=== PATIENT | female | born 1945 | race Caucasian/White ===

== ENCOUNTER → 2019-09-08 07:24 | Outpatient (CLI) | payer MEDICARE, OTHER, SELFPAY ==
[2019-09-08 08:21] LABS: Add Manual Diff / Slide Review NO; Basophils Absolute Auto 100 /uL (0-100); Basophils Percent Auto 0.9 % (0-2); Eosinophils Absolute Auto 300 /uL (0-450); Eosinophils Percent Auto 3.6 % (2-4); Hematocrit 43.4 % (36-46); Hemoglobin 14.5 g/dL (12.0-16.0); Lymphocytes Absolute Auto 2000 /uL (1100-4500); Lymphocytes Percent Auto 21.8 % (25-40); Mean Corpuscular HGB Conc 33.3 % (30-36); Mean Corpuscular Hemoglobin 29.7 PG (26-34); Mean Corpuscular Volume 89.2 fL (80-100); Monocytes Absolute Auto 600 /uL (0-900); Monocytes Percent Auto 6.4 % (3-14); Neutrophils Absolute Auto 6100 /uL (1500-7000); Neutrophils Percent Auto 67.3 % (50-75); Platelet Count 292 X10^3/uL (150-400); Red Blood Cell Count 4.87 X10^6/uL (4.0-5.2); Red Cell Distribution Width 13.3 % (11.6-14.8)
[2019-09-08 08:33] LABS: Alanine Aminotransferase 43 IU/L (<35); Albumin 4.3 g/dL (3.5-5.0); Albumin Globulin Ratio 1.5 (1.0-2.8); Alkaline Phosphatase 64 U/L (38-126); Aspartate Aminotransferase 34 IU/L (14-36); BUN Creatinine Ratio 21.4 (6-22); Bilirubin Total 0.5 mg/dL (0.2-1.3); Blood Urea Nitrogen 15 mg/dL (7-17); Calcium 9.2 mg/dL (8.4-10.2); Carbon Dioxide 32 mmol/L (22-32); Chloride 103 mmol/L (98-107); Cholesterol 179 mg/dL (140-199); Estimated Glomerular Filt Rate > 60.0 mL/min (>60); Globulin 2.9 g/dL (1.7-4.1); Glucose 123 mg/dL (80-110); HDL Cholesterol 41 mg/dL (40-60); HEMOLYSIS < 15 (0-50); LDL Cholesterol Calculated 104 mg/dL (<100); Potassium 4.7 mmol/L (3.4-5.1); Sodium 141 mmol/L (137-145); Total Protein 7.2 g/dL (6.3-8.2); Triglycerides 169 mg/dL (35-150)
[2019-09-08 09:31] LABS: Thyroid Stimulating Hormone 3.74 uIU/mL (0.47-4.68)
== END ==
PROVIDERS: Visit Provider Hospitalist
DX: E11.9 Type 2 diabetes mellitus without complications (principal)
CPT/HCPCS: 36415; 80053; 80061; 83036; 84443; 85025

== ENCOUNTER → 2020-01-13 14:38 | Outpatient (CLI) | payer MEDICARE, OTHER, SELFPAY ==
[2020-01-16 12:53] LABS: Fecal Immunochemical Test Negative (Negative)
== END ==
PROVIDERS: PCP Family Medicine; Referring Provider Family Medicine; Visit Provider Family Medicine
DX: Z12.11 Encounter for screening for malignant neoplasm of colon (principal)
CPT/HCPCS: 82274

== ENCOUNTER → 2020-09-26 10:35 | Outpatient (CLI) | payer MEDICARE, OTHER, SELFPAY ==
[2020-09-26 11:16] LABS: Hemoglobin A1C% w Est Avg Glu 6.6 % (4.0-6.0)
[2020-09-26 11:35] LABS: Alanine Aminotransferase 26 IU/L (<35); Albumin 4.1 g/dL (3.5-5.0); Albumin Globulin Ratio 1.3 (1.0-2.8); Alkaline Phosphatase 76 U/L (38-126); Aspartate Aminotransferase 26 IU/L (14-36); BUN Creatinine Ratio 22.7 (6-22); Bilirubin Total 0.3 mg/dL (0.2-1.3); Blood Urea Nitrogen 15 mg/dL (7-17); Calcium 9.6 mg/dL (8.4-10.2); Carbon Dioxide 32 mmol/L (22-32); Chloride 103 mmol/L (98-107); Cholesterol 225 mg/dL (140-199); Estimated Glomerular Filt Rate > 60.0 mL/min (>60); Globulin 3.2 g/dL (1.7-4.1); Glucose 126 mg/dL (80-110); HDL Cholesterol 42 mg/dL (40-60); HEMOLYSIS < 15 (0-50); LDL Cholesterol Calculated 133 mg/dL (<100); Potassium 4.5 mmol/L (3.4-5.1); Sodium 137 mmol/L (137-145); Total Protein 7.3 g/dL (6.3-8.2); Triglycerides 249 mg/dL (35-150)
[2020-09-26 11:55] LABS: Microalbumin Urine Random < 0.6 mg/dL (0-1.6)
[2020-09-26 11:56] LABS: Creatinine Urine Random 98.6 mg/dL
[2020-09-26 12:03] LABS: TSH w/ Reflex to FT4 4.08 uIU/mL (0.47-4.68)
== END ==
PROVIDERS: PCP Family Medicine; Referring Provider Family Medicine; Visit Provider Family Medicine
DX: E11.9 Type 2 diabetes mellitus without complications (principal); I10 Essential (primary) hypertension; E78.5 Hyperlipidemia, unspecified; I48.91 Unspecified atrial fibrillation
CPT/HCPCS: 36415; 80053; 80061; 82043; 82570; 83036; 84443

== ENCOUNTER → 2020-10-05 12:16 | Outpatient (CLI) | payer MEDICARE, OTHER, SELFPAY ==
--- NOTE | 2020-10-05 12:20 | DI.RAD.S_ITS ---
PROCEDURE: XR HIP W PEL IF DONE RT 2V INDICATIONS: Evaluate for back pain TECHNIQUE: AP pelvis with lateral view(s) of the right hip(s). COMPARISON: None. FINDINGS: Bones: No fractures or dislocations. Pelvic ring appears intact. No suspicious bony lesions. Lumbar spondylosis and facet disease. Mild right hip joint degeneration. Moderate left hip joint degeneration Soft tissues: The visualized bowel gas pattern is normal. No suspicious soft tissue calcifications. IMPRESSION: Mild right hip joint degeneration Dictated by: Ramakrishna Mayer M.D. on 10/05/2020 at 13:19 Approved by: Ramakrishna Mayer M.D. on 10/05/2020 at 13:20
--- NOTE | 2020-10-05 12:20 | DI.RAD.S_ITS ---
PROCEDURE: XR LUMBAR SPINE 2-3V INDICATIONS: Evaluate for back pain TECHNIQUE: 3 views of the lumbar spine were acquired. COMPARISON: None. FINDINGS: Bones: 6 non rib-bearing lumbar vertebra are noted. No fracture. Grade 1 anterolisthesis of L5 on L6. Multilevel degenerative endplate sclerosis and spurring. Diffuse facet arthropathy. Mild narrowing of the L4-L5 and L5-S1 disc spaces. Dextrocurvature of the thoracolumbar spine. Soft tissues: Overlying bowel gas pattern is normal. No suspicious soft tissue calcifications. IMPRESSION: Transitional lumbosacral vertebra, and 6 non rib-bearing lumbar vertebra. Please see montage image for further clarification of the spinal segmental level nomenclature used in this report Grade 1 anterolisthesis of L5 on L6 Lower lumbar spondylosis and facet arthropathy. Dextrocurvature Dictated by: Ramakrishna Mayer M.D. on 10/05/2020 at 13:21 Approved by: Ramakrishna Mayer M.D. on 10/05/2020 at 13:24
== END ==
PROVIDERS: PCP Family Medicine; Referring Provider Family Medicine; Visit Provider Family Medicine
DX: M25.551 Pain in right hip (principal); M54.5 Low back pain; M16.11 Unilateral primary osteoarthritis, right hip; M47.816 Spondylosis without myelopathy or radiculopathy, lumbar region; M43.16 Spondylolisthesis, lumbar region
CPT/HCPCS: 72100; 73502

== ENCOUNTER → 2020-10-25 15:26 | Outpatient (CLI) | payer MEDICARE, OTHER, SELFPAY ==
--- NOTE | 2020-10-25 15:29 | DI.MRI.S_ITS ---
PROCEDURE: MR LUMBAR SPINE WO CON INDICATIONS: Low back pain TECHNIQUE: Noncontrast sagittal T1 spin echo and T2 fast echo, sagittal STIR, axial T1 and T2 fast spin echo through the lumbar spine. In cases with scoliosis, additional coronal T2 fast spin echo may be performed. COMPARISON: [facility], CR, XR LUMBAR SPINE 2-3V, 10/05/2020, 12:23. FINDINGS: Image quality: Excellent. Alignment and Curvature: 6 non rib-bearing lumbar type vertebral body is again seen. The most inferior lumbar type vertebral body is labeled as S1. There is grade 1 anterolisthesis of L5 on S1 and measures 6 millimeters in distance. No gross pars defect is identified. Bone Marrow: Marrow is of normal overall signal. No acute vertebral body compression fractures. Spinal Cord: Conus medullaris terminates at the L2 level. Visualized cord demonstrates normal signal and size. Paraspinous Soft Tissues: No paravertebral masses. L1-L2: Normal appearance. L2-L3: Normal appearance. L3-L4: Disc desiccation signal is seen. Mild broad-based disc bulge and bilateral facet arthrosis is noted. No significant canal stenosis or neural foraminal narrowing. L4-L5: Disc desiccation signals and decreased disc height is noted. Broad-based disc bulge and bilateral facet arthrosis is seen with hypertrophy of ligamentum flavum. Mild central canal stenosis and mild bilateral neural foraminal narrowing is seen. L5-S1: Decreased intervertebral disc space and disc desiccation signals are noted. Diffuse disc bulge and bilateral facet arthrosis with hypertrophy of ligamentum flavum is seen with moderate central canal stenosis and [id number] bilateral neural foraminal narrowing. IMPRESSION: 1. Transitional anatomy with 6 lumbar type non rib-bearing vertebral bodies. 2. Minimal anterolisthesis of L5 on S1. No gross pars defect is seen. 3. No marrow edema. No compression fracture. 4. Degenerative disc bulge and bilateral facet arthrosis at L4-5 and L5-S1 levels causing [id number] central canal stenosis and bilateral neural foraminal narrowing more prominent at L5-S1 level as above. Dictated by: Joon Nazario M.D. on 10/25/2020 at 16:44 Approved by: Joon Nazario M.D. on 10/25/2020 at 16:57
== END ==
PROVIDERS: PCP Family Medicine; Referring Provider Family Medicine; Visit Provider Family Medicine
DX: M54.5 Low back pain (principal); M47.816 Spondylosis without myelopathy or radiculopathy, lumbar region; M47.817 Spondylosis without myelopathy or radiculopathy, lumbosacral region; M51.36 Other intervertebral disc degeneration, lumbar region; M51.37 Other intervertebral disc degeneration, lumbosacral region; M48.061 Spinal stenosis, lumbar region without neurogenic claudication; M48.07 Spinal stenosis, lumbosacral region
CPT/HCPCS: 72148

== ENCOUNTER → 2020-11-01 14:55 | Outpatient (CLI) | payer MEDICARE, OTHER, SELFPAY ==
[2020-11-01 23:12] LABS: Campylobacter Not Detected (Not Detect); Clostridium difficile toxin AB Not Detected (Not Detect); Cryptosporidium Not Detected (Not Detect); Cyclospora cayetanensis Not Detected (Not Detect); Entamoeba histolytica Not Detected (Not Detect); Enteroaggregative E.coli Not Detected (Not Detect); Enteropathogenic E.coli Not Detected (Not Detect); Enterotoxigenic E.coli It/st Not Detected (Not Detect); Plesiomonsa shigelloides Not Detected (Not Detect); Salmonella Not Detected (Not Detect); Shiga-like toxin-prod E.coli Not Detected (Not Detect); Shigella/Enteroinvasive E.coli Not Detected (Not Detect); Vibrio Not Detected (Not Detect); Vibrio cholerae Not Detected (Not Detect); Yersinia enterocolitica Not Detected (Not Detect)
[2020-11-01 23:13] LABS: Adenovirus F 40/41 Not Detected (Not Detect); Astrovirus Not Detected (Not Detect); Giardia lamblia Not Detected (Not Detect); Norovirus GI/GII Not Detected (Not Detect); Rotavirus A Not Detected (Not Detect); Sapovirus Not Detected (Not Detect)
== END ==
PROVIDERS: PCP Family Medicine; Visit Provider Specialist
DX: R19.7 Diarrhea, unspecified (principal)
CPT/HCPCS: 87177; 87507; 99212; G0463

== ENCOUNTER → 2020-11-07 10:09 | Outpatient (CLI) | payer MEDICARE, OTHER, SELFPAY ==
[2020-11-07 10:51] LABS: COVID19 -Nasal RAPID Negative (Negative)
== END ==
PROVIDERS: PCP Family Medicine; Visit Provider Specialist
DX: Z20.822 Contact with and (suspected) exposure to COVID-19 (principal)
CPT/HCPCS: 87635; C9803

== ENCOUNTER 2020-11-08 06:05 | Day surgery (SDC) | payer MEDICARE, OTHER, SELFPAY ==
[2020-11-08] VITALS (9 sets, daily range): BP systolic 108–126; BP diastolic 57–72; PULSE 52–70; RESP 10–17; TEMP 36.3–36.6; O2SAT 91–97; BMI 30.7
--- NOTE | 2020-11-08 | PATH_ITS ---
[facility] Accession Number: [id number] . 01 Material submitted: . PART A: colon - EDGE OF APPENDIX OPENING PART B: colon - RANDOM COLON BIOPSIES PART C: colon - POLYP AT 15 CM X2 . 02 Diagnosis: A. Appendiceal Orifice, Biopsy: Colonic mucosa with benign lymphoid hyperplasia. Negative for active or microscopic colitis. Negative for granulomata, dysplasia or malignancy. . B. Random Colon, Biopsies: Colonic mucosa with no diagnostic abnormality. Negative for active, chronic, and microscopic colitis. Negative for dysplasia and malignancy. . C. Colon Polyps at 15 cm, Biopsies: Benign peripheral nerve sheath lesion x1. Hyperplastic polyp x1. Negative for dysplasia or malignancy. MRV 11/14/2020 1642 Local . 02 Electronically signed: . Gael Michael MD, PhD, Pathologist NPI- [id number] . 01 Gross description: . Part A: EDGE OF APPENDIX OPENING: Received in formalin are 3 fragment(s) of bailey, soft tissue measuring 0.2 x 0.2 x 0.2 cm to 0.3 x 0.3 x 0.2 cm submitted entirely in 1 cassette(s) Part B: RANDOM COLON BIOPSIES: Received in formalin are multiple fragment(s) of bailey, soft tissue measuring 0.1 x 0.1 x 0.1 cm to 0.3 x 0.3 x 0.3 cm submitted entirely in 1 cassette(s) Part C: POLYP AT 15 CM X2: Received in formalin are 4 fragment(s) of bailey, soft tissue measuring 0.2 x 0.2 x 0.2 cm to 0.5 x 0.5 x 0.3 cm submitted entirely in 1 cassette(s) /SAM 11/09/20202025 Local . 02 Microscopic: . C. Sections are of colonic mucosa. One biopsy fragment shows expansion of the lamina propria by a bland-appearing spindle cell neoplasm. There is no significant nuclear atypia or mitotic activity. Necrosis is absent. To further classify the spindle cells, a limited panel of immunohistochemical stains is performed (each with an appropriately positive control). The cells of interest are strongly and diffusely positive for S100 immunoreactivity, consistent with a benign peripheral nerve sheath lesion. The cells of interest are negative for DOG-1 and desmin immunoreactivity, essentially excluding a gastrointestinal stromal tumor or leiomyoma, respectively. . * This test was developed and its performance characteristics determined by [facility]. It has not been cleared or approved by the U.S. Food and Drug Administration. The FDA has determined that such clearance or approval is not necessary. This test is used for clinical purposes. It should not be regarded as investigational or for research. . 02 Pathologist provided ICD-10: R19.7, D12.6, K63.5 . 02 CPT . 304332, 295873, 932374 Performed at: 01 [facility] [address] [id number] MD Edison Vargas MD Phone: [phone] Performed at: 02 [facility] [address] [place] [id number] MD Miriam Matos MD Phone: [phone]
[2020-11-08] MEDS: LACTATED RINGERS 1,000 ML 200 ML IV (07:30)
--- NOTE | 2020-11-08 07:38 | PM.PREOP ---
Pre-operative Note COVID-19 COVID-19 status: Negative Result date/Date tested (Pos, Neg/Pending): 11/07/20 Interval Note History & Physical reviewed/Exam performed by Physician: Yes Changes to H&P: Yes H&P completed within 30 days and has changed as indicated here:: Stool studies thus far negative for pathogens ASA Class (for procedural sedation): III
--- NOTE | 2020-11-08 08:15 | PM.OP.ENDO ---
Operative Date/Time/Diagnoses Date of procedure: 11/08/20 Time of procedure: 08:16 Pre-op diagnosis: Chronic diarrhea. Post sigmoid resection. Post-op diagnosis: same Procedure & Clinicians Study performed: Colonoscopy with cold biopsy Same procedure as scheduled: Yes Indications: Evaluate for colonic lesions. Chronic diarrhea. Screening. Surgeon: Eduardo Sanon Procedure Notes SCOAP/Timeout: Performed Procedure in detail: Patient is placed left lateral decubitus position underwent IV sedation duct by the surgeon consisting fentanyl Marck. Digital exam was unremarkable though visibly patient had large external hemorrhoids. Scope was inserted miss of the rectum into what ultimately was found to be the descending transverse and ascending colon reaching the cecum identified by the ileocecal valve appendiceal opening. Appendiceal opening seemed a little irregular and I biopsied it. I briefly cannulated the terminal ileum which was normal in appearance. Random biopsies were taken as I gradually pulled the scope out. I saw no other mucosal lesions till I reach the area of the anastomosis which was at 15 cm. There were 2 polyp like lesions which I biopsied and removed. There was some visible suture material at the anastomosis. The scope was brought into the rectum and retroflexed. There were no significant internal hemorrhoids or lesions. The scope was removed the patient tolerated the procedure well. The prep was very good. Scope withdrawal time: 8 minutes (12 total) Sedation minutes: 24 Findings: diverticulosis (Occasional) and polyp Specimen(s): other (Random colon biopsies. Edge of the appendiceal opening. Polyps near the anastomosis at 15 cm. ) Post-procedure Recommendations: Colonscopy in 5 years Plan for aftercare: Follow-up bilateral phone Follow up: as needed Disposition: PACU
[2020-11-08] MEDS: fentaNYL 250 MCG/5 ML INJ IV (08:16)
[2020-11-08] MEDS: MIDAZOLAM 5 MG/5 ML VIAL IV (08:16)
--- NOTE | 2020-11-08 08:21 | SUR.PHASEI ---
pt felt weak arriving from endo room, thought BS was dropping, rechecked BS was 118, same as preop. will continue to monitor.
== END 2020-11-08 10:03 | disposition home or self-care (01) ==
PROVIDERS: PCP Family Medicine; Referring Provider Family Medicine; Visit Provider Specialist
PROC: 0DJD8ZZ Inspection of Lower Intestinal Tract, Via Natural or Artificial Opening Endoscopic (ICD-10-PCS; CPT 45378; principal; 2020-11-08 07:45)
DX: K52.9 Noninfective gastroenteritis and colitis, unspecified (principal); K57.30 Diverticulosis of large intestine without perforation or abscess without bleeding; K63.5 Polyp of colon; D36.7 Benign neoplasm of other specified sites
CPT/HCPCS: 45380; 99152; J2250; J3010

== ENCOUNTER → 2020-11-22 09:41 | Outpatient (CLI) | payer MEDICARE, OTHER, SELFPAY ==
[2020-11-22 09:50] LABS: RBC Urine None Seen (0-5/HPF)
[2020-11-22 10:43] LABS: Add Manual Diff / Slide Review NO; Basophils Absolute Auto 100 /uL (0-100); Basophils Percent Auto 0.7 % (0-2); Eosinophils Absolute Auto 200 /uL (0-450); Eosinophils Percent Auto 1.8 % (2-4); Hematocrit 42.5 % (36-46); Hemoglobin 13.8 g/dL (12.0-16.0); Lymphocytes Absolute Auto 1900 /uL (1100-4500); Lymphocytes Percent Auto 20.4 % (25-40); Mean Corpuscular HGB Conc 32.5 % (30-36); Mean Corpuscular Hemoglobin 29.4 PG (26-34); Mean Corpuscular Volume 90.6 fL (80-100); Monocytes Absolute Auto 500 /uL (0-900); Monocytes Percent Auto 5.5 % (3-14); Neutrophils Absolute Auto 6700 /uL (1500-7000); Neutrophils Percent Auto 71.6 % (50-75); Platelet Count 293 X10^3/uL (150-400); Red Blood Cell Count 4.69 X10^6/uL (4.0-5.2); Red Cell Distribution Width 13.5 % (11.6-14.8); White Blood Cell Count 9.4 X10^3/uL (4.5-11.0)
[2020-11-22 12:13] LABS: Appearance Urine UA CLEAR; Bilirubin Urine UA NEGATIVE (NEGATIVE); Color Urine UA YELLOW; Glucose Urine UA NEGATIVE (Negative); Ketones Urine UA NEGATIVE (NEGATIVE); Leukocyte Esterase Urine UA NEGATIVE (NEGATIVE); Nitrite Urine UA NEGATIVE (Negative); Occult Blood Urine UA NEGATIVE (Negative); Protein Urine UA NEGATIVE (Negative); Urobilinogen Urine UA 0.2 E.U./dL (0.2)
[2020-11-22 12:18] LABS: pH Urine UA 7.5 (4.5-8.0)
[2020-11-22 12:19] LABS: BUN Creatinine Ratio 27.6 (6-22); Blood Urea Nitrogen 16 mg/dL (7-17); Calcium 9.1 mg/dL (8.4-10.2); Carbon Dioxide 32 mmol/L (22-32); Chloride 103 mmol/L (98-107); Estimated Glomerular Filt Rate > 60.0 mL/min (>60); Glucose 147 mg/dL (80-110); HEMOLYSIS < 15 (0-50); Sodium 139 mmol/L (137-145)
[2020-11-22 12:34] LABS: Bacteria Urine Moderate (10-30); Culture Indicated Urine Cult Not Indicated; Squamous Epithelial Cell Urine 1-5 /HPF (0-5/HPF); WBC Urine 0-1/HPF (0-5/HPF)
== END ==
PROVIDERS: PCP Family Medicine; Referring Provider Orthopaedic Surgery Orthopaedic Surgery of the Spine; Visit Provider Orthopaedic Surgery Orthopaedic Surgery of the Spine
DX: Z01.818 Encounter for other preprocedural examination (principal); Z01.812 Encounter for preprocedural laboratory examination; N39.0 Urinary tract infection, site not specified
CPT/HCPCS: 36415; 80048; 81001; 85025; 93005

== ENCOUNTER → 2020-12-18 16:57 | Outpatient (CLI) | payer MEDICARE, OTHER, SELFPAY ==
[2020-12-18 17:48] LABS: Add Manual Diff / Slide Review NO; Basophils Absolute Auto 100 /uL (0-100); Basophils Percent Auto 0.5 % (0-2); Eosinophils Absolute Auto 200 /uL (0-450); Eosinophils Percent Auto 2.2 % (2-4); Hematocrit 41.9 % (36-46); Lymphocytes Absolute Auto 2000 /uL (1100-4500); Lymphocytes Percent Auto 18.6 % (25-40); Mean Corpuscular HGB Conc 33.3 % (30-36); Mean Corpuscular Hemoglobin 29.9 PG (26-34); Mean Corpuscular Volume 89.8 fL (80-100); Monocytes Absolute Auto 600 /uL (0-900); Monocytes Percent Auto 5.9 % (3-14); Neutrophils Absolute Auto 7900 /uL (1500-7000); Neutrophils Percent Auto 72.8 % (50-75); Platelet Count 306 X10^3/uL (150-400); Red Blood Cell Count 4.67 X10^6/uL (4.0-5.2); Red Cell Distribution Width 12.9 % (11.6-14.8); White Blood Cell Count 10.9 X10^3/uL (4.5-11.0)
[2020-12-18 18:13] LABS: BUN Creatinine Ratio 25.7 (6-22); Blood Urea Nitrogen 19 mg/dL (7-17); Calcium 9.2 mg/dL (8.4-10.2); Carbon Dioxide 32 mmol/L (22-32); Chloride 102 mmol/L (98-107); Estimated Glomerular Filt Rate > 60.0 mL/min (>60); Glucose 145 mg/dL (80-110); HEMOLYSIS < 15 (0-50); Potassium 3.9 mmol/L (3.4-5.1); Sodium 138 mmol/L (137-145)
== END ==
PROVIDERS: PCP Family Medicine; Referring Provider Orthopaedic Surgery Orthopaedic Surgery of the Spine; Visit Provider Orthopaedic Surgery Orthopaedic Surgery of the Spine
DX: Z01.812 Encounter for preprocedural laboratory examination (principal)
CPT/HCPCS: 36415; 80048; 85025

== ENCOUNTER → 2020-12-28 08:24 | Outpatient (CLI) | payer MEDICARE, OTHER, SELFPAY ==
[2020-12-28 10:10] LABS: RBC Urine 0-1/HPF (0-5/HPF); Squamous Epithelial Cell Urine 5-10 /HPF (0-5/HPF); WBC Urine 1-5/HPF (0-5/HPF)
[2020-12-28 10:11] LABS: Bacteria Urine Moderate (10-30); Culture Indicated Urine Cult Not Indicated; Mucus Urine 2+ (Negative)
== END ==
PROVIDERS: PCP Family Medicine; Referring Provider Specialist; Visit Provider Specialist
DX: R10.2 Pelvic and perineal pain (principal)
CPT/HCPCS: 81015

== ENCOUNTER → 2020-12-29 11:06 | Outpatient (CLI) | payer MEDICARE, OTHER, SELFPAY ==
[2020-12-29 14:38] LABS: COVID19 -Nasal RAPID Negative (Negative)
== END ==
PROVIDERS: PCP Family Medicine; Visit Provider Nurse Practitioner
DX: Z20.822 Contact with and (suspected) exposure to COVID-19 (principal)
CPT/HCPCS: 87635

== ENCOUNTER 2020-12-31 05:43 | Inpatient (IN) | payer MEDICARE, OTHER, SELFPAY ==
[2020-12-31] VITALS (21 sets, daily range): BP systolic 77–127; BP diastolic 34–69; PULSE 7–90; RESP 11–96; TEMP 35.9–36.8; O2SAT 11–96; BMI 30.1
--- NOTE | 2020-12-31 | DI.RAD.S_ITS ---
PROCEDURE: XR LUMBAR SPINE 2-3V INDICATIONS: L5-S1 TLIF TECHNIQUE: 2 views of the lumbar spine were acquired. COMPARISON: [facility], , XR LUMBAR SPINE 2-3V, 10/05/2020, 12:23. FINDINGS: Previous lumbar spine radiograph shows transitional anatomy with 6 lumbar type vertebral bodies. Intraoperative fluoroscopic images of lower lumbar spine shows transpedicular fusion at L5-S1 level with intervertebral spacer placement. IMPRESSION: Fluoro guidance was provided intraoperatively for lower lumbar spine fusion at L5-S1 level. Dictated by: Joon Nazario M.D. on 12/31/2020 at 11:14 Approved by: Joon Nazario M.D. on 12/31/2020 at 11:16
--- NOTE | 2020-12-31 07:38 | PM.PREOP ---
Pre-operative Note COVID-19 COVID-19 status: Negative Result date/Date tested (Pos, Neg/Pending): 12/29/20 Interval Note History & Physical reviewed/Exam performed by Physician: Yes Changes to H&P: No
[2020-12-31] MEDS: LACTATED RINGERS 1,000 ML 42 ML IV ×2 (07:41→10:21)
[2020-12-31] MEDS: CEFAZOLIN 2 GM/100 ML FROZ.PIGGY IV ×3 (08:00→23:36)
--- NOTE | 2020-12-31 08:27 | SUR.OPER ---
Prone on spine table, head in foam head support, padded chest and pelvic supports, gel pad at knees, lower legs supported by pillows; nipples, genitalia and toes free of pressure, arms secured on foam padded arm boards at <90 degrees abduction. Tape over blanket at thigh secured to table.
[2020-12-31] MEDS: BUPIVACAINE 0.5% W/ EPI (PF) 30 ML VIAL INJ (08:36)
[2020-12-31] MEDS: BUPIVACAINE LIPOSOME 266 MG/20 ML VIAL INJ (08:36)
--- NOTE | 2020-12-31 10:44 | P.OP_ITS ---
Operative Date/Time/Diagnoses Date of procedure: 12/31/20 Time of procedure: 07:45 Pre-op diagnosis: 1. L5-S1 spondylolisthesis 2. L5-S1, S1-S2 spinal stenosis 3. Lumbar spondylosis with radiculopathy Post-op diagnosis: same Procedure & Clinicians Procedure: 1. L5-S1 Postero-lateral and posterior interbody fusion 2. L5-S1 interbody cage placement. 3. L5-S1 decompressive laminectomy with bilateral facetecomies 4. S1-S2 left hemilaminectomy 5. L5-S1 Posterior non-segmental instrumentation 6. Kearsarge of bone marrow from iliac crest 7. Utilization of microsurgical technique and operating microscope Same procedure as scheduled: Yes Indications: Patient has been having chronic back pain and worsening lumbar radiculopathy. Patient failed multiple conservative management with worsening pain weakness and numbness in her lower extremity. Patient has been having difficulty performing activity of daily living. After discussing risks benefits of treatment options, patient elected proceed with surgery. Surgeon: Lynn Osei Maintenance Mechanic Telephone: Yen Martinez Click Yes if Unassisted: No Anesthesia Type: General Operative Notes Closure Type: primary Specimen(s): none sent Prosthetic devices, grafts, tissues, transplants, or devices: Globus revolve screws, Rise cage Applied: catheter Estimated Blood Loss (mL): 50 Blood products transfused: none Procedure in detail: Patient was seen in the preoperative area. Risks and benefits of the surgery was discussed with the patient. Informed consent was obtained from the patient and placed in the chart. Surgical site was marked. Patient was taken to the operative room. General anesthesia was administered. Prophylactic antibiotic was given to the patient less than 30 min before the incision was made. Patient was placed into a prone position on the Tyrone tab le. Patient's back was then prepped and draped in the sterile fashion. Time-out was performed at this time. Patient has transitional anatomy with 6 lumbar vertebrae. In order to keep consistency with the MRI report nomenclature, the spondylolisthesis is located at the L5-S1 level, which is the 2nd most caudal level from the sacrum. The most caudal motion segment is named S1-S2, but it bears lumbar sacral anatomy. Using AP and lateral C-arm imaging the interval between L5-S1 S1-S2 was identified and marked on patient's back. A 2 inch incision 2 in from midline was made on the Left side first. The fascia was incised in line with skin incision. Globus MARS retractors was placed inside the incision and docked onto the L5 lamina. Using microsurgical technique and operating microscope, a L5 laminectomy and L5-S1 facetectomy was performed using a Kerrison rongeur. The disc space at L5-S1 was identified. And a total diskectomy was performed at L5- S1 level. The endplates were decorticated using a rasp and shaver. The total diskectomy and decortication was performed at L5-S1 level in order to to accomplish a L5-S1 fusion. The local bone from the laminectomy and facetectomy was saved for local bone grafting. After the total diskectomy and decortication was completed, Globus Trifecta bone graft material was combined with local bone that was harvested earlier. At this time, a separate skin is incision was made over the iliac crest. A Jamshidi needle was inserted into the iliac crest through a separate skin incision. 5 cc of bone marrow aspiration was obtained through the separate skin incision using a Jamshidi needle from the iliac crest. The bone marrow aspiration was combined with local bone and the via cell bone grafting material. The bone grafting material was placed into the L5-S1 interbody space along with a expandable cage. The cage was expanded to its maximum height using the torque limiting screwdriver. At this time the MARS retractor was redirected over the L5 lamina. Using microsurgical technique and operating microscope, a S1-S2 heminectomy was performed using the Kerrison rongeur. The ligamentum flavum was also resected at the side of the hemila minectomy for further decompression of the epidural space. At this time a mirror image incision was made on the Right side. The fascia was incised in line with the skin incision. Globus MARS retractor was inserted and docked onto the L5-S1 posterolateral gutter. Using the power drill, posterior- lateral decortication was performed at L5-S1 level until bleeding cortical bone was identified. The remaining bone grafting material was placed into the L5-S1 posterior lateral gutter he order to accomplish posterolateral fusion at the L5- S1 level. Using the double C-arm technique, pedicle screws were placed into the L5 and S1 pedicles bilaterally. This was done by placing the Jamshidi needle into the pedicles, then placing the guidewires over the Jamshidi needle, and finally placing the cannulated screws over the guidewires bilaterally. After the pedicle screws were placed, 2 titanium rods was locked into the heads of the pedicle screws using locking caps and torque limiting screwdriver. After all the hardware was placed, and confirmed with AP and lateral C-arm imaging, the wound was then irrigated with sterile normal saline and packed with Ray-Charles gauze for 3 min to accomplish hemostasis. After the gauze was removed the deep fascia was closed with #1 Vicryl suture. The subcutaneous layer was closed with 2-0 Vicryl. The skin was closed with skin melissa. Patient tolerated the procedure well. There were no complications. Complications: none Post-operative Condition: stable Disposition: PACU Plan for aftercare: Admit to inpatient hospital
[2020-12-31] MEDS: fentaNYL 100 MCG/2 ML INJ IV ×3 (11:08→11:40)
[2020-12-31] MEDS: HYDROMORPHONE 2 MG INJ IV ×6 (11:10→11:56)
[2020-12-31] MEDS: OXYCODONE IR 5 MG TABLET PO ×2 (11:24→11:55)
--- NOTE | 2020-12-31 12:14 | SUR.PHASEI ---
Pt with map of 40-55, repositioned BP cuff, pt received 2 bags of IVF. pt reports pain is 8-9/10, sleeps in between, grimace on brow. Pt received 1.5 mg Dilaudid and 150 mg Fentanyl with 10 mg oxy. Spoke with anesthesia, continue to monitor pt in phase 1, no additional fluids and do not give additional pain medication. Supportive care and continue to monitor.
[2020-12-31] MEDS: ACETAMINOPHEN IV 1,000 MG/100 ML VIAL 400 MG IV (12:57)
[2020-12-31] MEDS: SODIUM CHLORIDE 0.9% 1,000 ML 100 ML IV (14:19)
[2020-12-31] MEDS: HYDROMORPHONE 0.5 MG INJ IV ×2 (14:32→23:52)
--- NOTE | 2020-12-31 15:00 | PC.NURSE ---
Patient brought to unit at 1:45 from PACU. On 5L of O2 nasal cannula, sating around 89-92%. RT called to assess and determined she can stay at 5L for now. Pain 8/10 in back, given 05. mg IV dilaudid which provided some relief. Patient is complaining of right eye pain and this racebook writer noted redness, tearing and a possible scratch in the eye. This racebook writer attempted to flush the eye with saline and provided a warm compress which provided momentary relief. Attempted to contact Dr. Osei to come assess this patients eye but he is in surgery at this time, will pass on to next shift to evaluate. SCDs applied BLE. Call light within reach.
--- NOTE | 2020-12-31 15:10 | PT-IP ANOTE ---
Checked on pt at 1500 for postop evaluation. Pt complained of 10/10 pain and was noted to be quite groggy. Will follow up for evaluation on 01/01/21.
[2020-12-31] MEDS: OXYCODONE IR 5 MG TABLET 10 MG PO ×2 (15:41→20:21)
--- NOTE | 2020-12-31 16:32 | SUR.PHASEII ---
notified by floor RN that pt had red painful eye. Spoke with Dr Santillan by phone, he states staff shouldd patch eye. When asked about any drops or numbing drops, he declined and stated to just patch the eye. This was relayed to the acute care RN
[2020-12-31] MEDS: SENNOSIDES 8.6 MG TABLET 17.2 MG PO (20:18)
[2020-12-31] MEDS: METFORMIN HCL 500 MG TABLET PO (20:18)
[2020-12-31] MEDS: TRAZODONE 50 MG TABLET 100 MG PO (20:18)
[2020-12-31] MEDS: DOCUSATE 100 MG CAPSULE PO (20:18)
[2020-12-31] MEDS: ESCITALOPRAM 10 MG TABLET PO (20:53)
[2020-12-31] MEDS: ONDANSETRON 4 MG/2 ML INJ IV (23:36)
[2021-01-01] VITALS (8 sets, daily range): BP systolic 93–139; BP diastolic 52–75; PULSE 64–89; RESP 14–18; TEMP 36.4–37.6; O2SAT 83–97
[2021-01-01] MEDS: SODIUM CHLORIDE 0.9% 1,000 ML 100 ML IV (00:29)
[2021-01-01] MEDS: OXYCODONE IR 5 MG TABLET 10 MG PO ×5 (02:44→23:40)
[2021-01-01] MEDS: hydrOXYzine pamoate 25 MG CAPSULE PO ×2 (03:58→07:53)
[2021-01-01] MEDS: HYDROMORPHONE 0.5 MG INJ IV (04:44)
[2021-01-01] MEDS: PANTOPRAZOLE 20 MG TABLET PO (06:56)
[2021-01-01] MEDS: LEVOTHYROXINE 100 MCG TABLET PO (06:56)
[2021-01-01] MEDS: DOCUSATE 100 MG CAPSULE PO ×2 (07:51→20:58)
[2021-01-01] MEDS: CHOLECALCIFEROL (VITAMIN D3) 1,000 UNIT TABLET 1000 UNIT PO (07:51)
[2021-01-01] MEDS: FERROUS SULFATE 325 MG TABLET PO (07:51)
[2021-01-01] MEDS: FUROSEMIDE 20 MG TABLET PO (07:51)
[2021-01-01] MEDS: METOPROLOL ER 25 MG TABLET PO (07:52)
[2021-01-01] MEDS: ACETAMINOPHEN 325 MG TABLET 650 MG PO ×3 (07:52→23:40)
[2021-01-01] MEDS: METFORMIN HCL 500 MG TABLET PO ×2 (07:52→21:00)
--- NOTE | 2021-01-01 07:55 | P.PN_ITS ---
Subjective Subjective Date Patient Seen: 01/01/21 Time Patient Seen: 07:55 Interval history: Patient's pain is 9/10. Denies fever or chills. She was nauseous this morning and had a couple episodes of vomiting. She is feeling better now. No shortness of breath or chest pain. Was not able to participate with physical therapy yesterday evening secondary to feeling tired and her pain was 10/10. Exam Vital Signs (past 8 hours): - 01/01/21 00:24 01/01/21 04:40 Temperature 97.5 F L 98.0 F Pulse Rate 66 76 Respiratory Rate 16 18 Blood Pressure 114/65 139/75 Pulse Oximetry 97 Oxygen Delivery Method Room Air Oxygen Flow Rate 3 Narrative Exam Narrative: Pleasant 75-year-old female resting comfortably in bed in no apparent distress. Patient is alert and oriented. Both legs are warm and dry. Motor functions intact distal bilateral lower extremities. Sensation grossly intact to light touch bilateral lower extremities. Dressing is Clean, dry, intact. [facility] Medical History Arthritis Cardiac arrhythmia (~2013) Cataract fragments in eye following surgery Cataracts, bilateral (~1994) Chronic back pain Chronic diarrhea Constipation Diabetes Diarrhea Diverticulosis (~2017) Flesh-eating bacteria (~2000) Grief reaction Hyperlipidemia Hypothyroidism Left shoulder pain (~2020) Restless leg syndrome Spinal stenosis Spondylolisthesis, lumbar region Surgical History Anesthesia Broken collarbone (~2011) Diverticular disease (~2017) History of cholecystectomy History of colonoscopy with polypectomy History of hysterectomy Hx of arthroscopy Hx of LASIK S/P cervical spinal fusion S/P colectomy Family History Father History of heart disease Mother Rheumatoid arthritis Brother History of heart disease Brother Cancer Social History marital status: unknown household members: none Smoking Status: Never smoker alcohol intake: never substance use type: does not use Assessment & Plan Post-op Postoperative Procedures: Procedures Operation Date: 12/31/20 07:45 Actual Procedures Side Surgeon p S1-S2 left hemilaminectomy, L5-S1 TLIF w. posterior instrumentation Lynn Osei MD Postop day 1. Patient progressing as expected. Mobilize with physical therapy. Continue work on pain control. Likely discharge home in 1-2 days.
--- NOTE | 2021-01-01 09:35 | PT.IIE ---
Current Diagnoses Spondylolisthesis, lumbosacral region (12/31/20) Spinal stenosis, lumbar region without neurogenic claudication (12/31/20) Surgery Performed Operation Date: 12/31/20 07:45 Actual Procedures p S1-S2 left hemilaminectomy, L5-S1 TLIF w. posterior instrumentation - Lynn Osei MD Surgical History (Last Reviewed 01/01/21 @ 07:56 by Rick Sanches PA-C) Anesthesia Broken collarbone (~2011) Diverticular disease (~2017) History of cholecystectomy History of colonoscopy with polypectomy History of hysterectomy Hx of arthroscopy Hx of LASIK S/P cervical spinal fusion S/P colectomy Medical History (Last Reviewed 01/01/21 @ 07:56 by Rick Sanches PA-C) Arthritis Cardiac arrhythmia (~2013) Cataract fragments in eye following surgery Cataracts, bilateral (~1994) Chronic back pain Chronic diarrhea Constipation Diabetes Diarrhea Diverticulosis (~2017) Flesh-eating bacteria (~2000) Grief reaction Hyperlipidemia Hypothyroidism Left shoulder pain (~2020) Restless leg syndrome Spinal stenosis Spondylolisthesis, lumbar region Physical Therapy Inpatient Evaluation/Re-Eval M1 PT/OT-IP Prior Functional Status Start: 12/31/20 14:49 Freq: NEEDED Status: Active Protocol: Document 01/01/21 09:34 AW (Rec: 01/01/21 12:19 AW [id number]) Medical Review Prior Functional Status Medical History Reviewed Yes Communication WNL. Pt is an effective verbal communicator. Mobility and Gait Pt reports slow but independent mobility at mobility. She enjoys gardening . Activities of Daily Living and IADL's Pt endorses urge incontinence. She has been independent with ADL's. She drives and pays her own bills. Social History Household Members none Living Arrangements House Number of Floors (Floors) One Floor Number of Stairs To Enter/Railing? 2 TIM with narrow B rails through the garage entry. 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 She identifies no significant social support. She states senior services will drive her home and that she has contacted [facility] about post-op services. M2 PT-IP Current Condition Start: 12/31/20 14:49 Freq: NEEDED Status: Active Protocol: Document 01/01/21 09:34 AW (Rec: 01/01/21 12:19 AW [id number]) Physical Therapy Current Condition Current Condition Evaluation Date 01/01/21 Treatment Diagnosis s/p L5-S1 TLIF; difficulty in walking Onset Date 12/31/20 Precautions Lumbar Precautions Log Roll,No Twisting,Limit Bending,Lifting Restriction of 10 lbs,Gait Belt above Incisional Area Weight Bearing Status Weight Bearing Status Weight Bear as Tolerated M3 PT-IP Subjective Start: 12/31/20 14:49 Freq: NEEDED Status: Active Protocol: Document 01/01/21 09:34 AW (Rec: 01/01/21 12:19 AW [id number]) Subjective Physical Therapy Visit Type Type Initial Evaluation Visit Start Time 09:08 Visit Stop Time 09:34 Total Visit Minutes 26 Number of RUG TOUCH UP PAINTER Visits 0 Physical Therapy Visit Comments Patient Comments I think I had too much pain medication. Patient Goals Pt hopes to be able to plant her [employer] in February. Therapy Pain Assessment Pain When Pain Assessed At Rest Pain Present Pain Present Pain Reported Location Back Intensity 4 Scale Used increases with mobility Pain Management Techniques Modification of Treatment,Re- positioning,Timing of Activity with Medications M4 PT-IP Mobility and Gait Start: 12/31/20 14:49 Freq: NEEDED Status: Active Protocol: Document 01/01/21 09:34 AW (Rec: 01/01/21 12:19 AW [id number]) PT-Bed Mobility Assessment Rolling Type of Rolling Log Rolling Level of Assist Moderate Assistance,1 Person Assistance Sit to Supine Sit to Supine Moderate Assistance,1 Person Assistance Scooting Scooting Up and Down in Bed Moderate Assistance PT-Transfer Assessment Sit to and From Stand Sit to and from Stand Moderate Assistance,1 Person Assistance,Use of Upper Extremities Equipment Transfer Assistive Device Gait Belt,Front Wheeled Walker Orthotic/Prosthetic Devices or Brace: No Transfers Transfer Destination Bed Transfer Technique Stand Step Pivot Transfer Ability Level of Assist Moderate Assistance,1 Person Assistance,Use of Upper Extremities Comments Mobility Comments Pt was sitting up in the chair finishing breakfast as PT arrived. Educated pt on back precautions and log roll technique. She wanted to go back to bed. From the chair, she needeed mod assist to stand. She used the FWW to ambulate 20 feet around the room min assist. On return to the right side of the bed, pt sat and required mod assist to transition to sidelying, to roll onto her back, and to reposition. Pt was left with call light and all needs in reach. Bed alarm was on for safety. Gait Assessment Gait Gait Assistance Required: Minimum Assistance,1 Person Assist Distance (Feet) 20 Able to Maintain Weight Bearing Status Yes During Gait Assistive Devices Assistive Device Gait Belt,Front Wheeled Walker Orthotic/Prosthetic Devices or Brace: No Gait Deviations General Gait Pattern Antalgic,Decreased Stride Length,Decreased Feet Clearance,Flexed Trunk,Step-to Gait Factors Limiting Gait Function Factors Limiting Gait Function Decreased Activity Tolerance, Decreased Strength,Limited Range of Motion,Pain,Poor Balance Comments Gait Comments See mobility comments. Stair Climbing Assessment Comments Stair Climbing Comments Not assessed. PT-Balance Assessment Sitting Balance and Reactions Static Sitting Balance Ability Good Dynamic Sitting Balance Ability Good Standing Balance and Reactions Static Standing Balance Ability Good Dynamic Standing Balance Ability Fair Device Used FWW M5 PT-IP Objective Assessments Start: 12/31/20 14:49 Freq: NEEDED Status: Active Protocol: Document 01/01/21 09:34 AW (Rec: 01/01/21 12:19 AW [id number]) Orientation Orientation/Cognition Level of Alertness Lethargic Orientation Name,Day of Week,Place, Situation Language Function Ability No Deficits Noted Safety Awareness Decreased Safety Awareness Comments Pt was lethargic due to pain medication. RN notified. Gross Range of Motion Lower Extremity ROM Assessment Within Functional Limits Strength Lower Extremity Strength Assessment Bilaterally Impaired Hip 4-/5 Knee 4-/5 Ankle 4/5 Sensation Assessment Sensation Gross Sensation WNL Muscle Tone Muscle Tone WNL Yes M6 PT-IP Treatment Start: 12/31/20 14:49 Freq: NEEDED Status: Active Protocol: Document 01/01/21 09:34 AW (Rec: 01/01/21 12:19 AW [id number]) Physical Therapy Treatment Exercises Exercises Ankle Pumps Education Education Provided Precautions,Weight Bearing Status,Post-Op Packet,Safety Other Treatments Other Treatment Performed Educated pt on role of PT, plan of care, WB status, post op precautions, and safe use of FWW. M7 PT-IP Assessment and Plan Start: 12/31/20 14:49 Freq: NEEDED Status: Active Protocol: Document 01/01/21 09:34 AW (Rec: 01/01/21 12:19 AW [id number]) PT Summary Assessment and Plan Potential Rehabilitation Potential Good Status of Condition at Evaluation Evolving Summary Impairments Pain,ROM,Strength,Balance,Bed Mobility,Transfers,Gait, Activity Tolerance Assessment Summary Saulo is a 75 yo woman seen for PT evaluation on POD1 following L5-S1 TLIF. She lives alone and is independent in all regards at baseline. On evaluation, pt required min to mod assist for all mobility. Pt has pain and decreased activity tolerance affecting her movement. Pt states she will not have assist at home when she discharges but was planning to have home health. PT will continue to assess and refine discharge recommendation. At this time, PT recommending SNF vs home with HH. Goals Bed Mobility Goal Independent Transfer Goal Independent,Front Wheeled Walker Gait Goal Independent,Front Wheel Walker Gait Distance 150 Other Goals - up/down 2 steps with B rails IND - progress gait to 150 feet with 4WW Days to Meet Goals 8 Frequency of Treatment Frequency Of Treatment Twice a Day Treatment Plan Physical Therapy Treatment Plan Bed Mobility Training,Transfer Training,Gait Training, Therapeutic Exercise,Balance Retraining,Post Op Education, Discharge Planning,Hot or Cold Pack Other Recommendations and Next Treatment review precautions; log roll; Focus gait train with FWW; stairs when able. Precautions Lumbar Precautions Log Roll,No Twisting,Limit Bending,Lifting Restriction of 10 lbs,Gait Belt above Incisional Area Recommendations To Nursing Amount of Assist Needed 1 Person Assist Discharge Recommendations PT Discharge Recommendations Home with Assistance,Home Health,SNF Rehab Other Discharge Recommendations SNF vs home with HH depending on progress. Equipment Needed for Home Before FWW if going home and not safe Discharge with 4WW Transportation Needs at Discharge Private Vehicle,Wheelchair/ Cabulance
[2021-01-01] MEDS: VITAMIN E 400 UNIT CAPSULE PO (11:38)
[2021-01-01] MEDS: ESCITALOPRAM 10 MG TABLET PO ×2 (11:38→20:58)
--- NOTE | 2021-01-01 14:40 | OT.IP.EVAL ---
Current Diagnoses Spondylolisthesis, lumbosacral region (12/31/20) Spinal stenosis, lumbar region without neurogenic claudication (12/31/20) Surgery Performed Operation Date: 12/31/20 07:45 Actual Procedures p S1-S2 left hemilaminectomy, L5-S1 TLIF w. posterior instrumentation - Lynn Osei MD Past Medical History (Last Reviewed 01/01/21 @ 07:56 by Rick Sanches PA-C) Arthritis Cardiac arrhythmia (~2013) Cataract fragments in eye following surgery Cataracts, bilateral (~1994) Chronic back pain Chronic diarrhea Constipation Diabetes Diarrhea Diverticulosis (~2017) Flesh-eating bacteria (~2000) Grief reaction Hyperlipidemia Hypothyroidism Left shoulder pain (~2020) Restless leg syndrome Spinal stenosis Spondylolisthesis, lumbar region Surgical History (Last Reviewed 01/01/21 @ 07:56 by Rick Sanches PA-C) Anesthesia Broken collarbone (~2011) Diverticular disease (~2017) History of cholecystectomy History of colonoscopy with polypectomy History of hysterectomy Hx of arthroscopy Hx of LASIK S/P cervical spinal fusion S/P colectomy Occupational Therapy Inpatient Evaluation/Re-Eval M1 PT/OT-IP Prior Functional Status Start: 01/01/21 15:23 Freq: NEEDED Status: Active Protocol: Document 01/01/21 13:57 [facility] (Rec: 01/01/21 15:44 [facility] [id number]) Medical Review Prior Functional Status Medical History Reviewed Yes Communication WNL. Pt is an effective verbal communicator. Mobility and Gait Pt reports slow but independent mobility at mobility. She enjoys gardening . Activities of Daily Living and IADL's Pt endorses urge incontinence. She has been independent with ADL's. She drives and pays her own bills. Social History Household Members none Living Arrangements House Number of Floors (Floors) One Floor Number of Stairs To Enter/Railing? 2 TIM with narrow B rails through the garage entry. 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 She identifies no significant social support. She states senior services will drive her home and that she has contacted [facility] about post-op services. M2 OT-IP Current Condition Start: 01/01/21 15:23 Freq: Status: Active Protocol: Document 01/01/21 13:57 [facility] (Rec: 01/01/21 15:44 [facility] [id number]) Occupational Therapy Current Condition Current Condition Evaluation Date 01/01/21 Treatment Diagnosis S/p S1-2 hemilaminectomy, L5- S1 TLIF with posterior inst. Post Operative Precautions Lumbar Precautions Log Roll,No Twisting,Limit Bending,Lifting Restriction of 10 lbs,Gait Belt above Incisional Area M3 OT- IP Subjective and Pain Start: 01/01/21 15:23 Freq: Status: Active Protocol: Document 01/01/21 13:57 [facility] (Rec: 01/01/21 15:44 [facility] [id number]) OT- Subjective Occupational Therapy Visit Type Type Initial Evaluation Visit Start Time 13:57 Visit Stop Time 14:40 Total Visit Minutes 43 Occupational Therapy Visit Comments Patient Comments Pt agreed to get up for OT eval. Patient/Caregiver Goals TO go home. OT Pain Assessment Pain When Pain Assessed During Mobility Pain Present Pain Present Pain Reported Location Back Intensity 10 Scale Used Numeric (0 - 10) M4 OT- IP ADL's Start: 01/01/21 15:23 Freq: Status: Active Protocol: Document 01/01/21 13:57 [facility] (Rec: 01/01/21 15:44 [facility] [id number]) OT [id number] Comments OT Self-Feeding Comments NOt at meal time. OT ADL-Grooming General Evaluation Grooming Ability Standby Assistance Areas Needing Assistance Retrieving/Set-up of Grooming Items OT ADL-Oral Care General Eval Oral Care Ability Standby Assistance Comments Oral Care Comments VC to hinge at her hips to spit into the sink or just spit into a cup to best follow her back precautions. OT ADL-Dressing General Eval Lower Body Dressing Ability Maximum Assistance Comments OT Dressing Comments Pt states will not be wearing her compression stockings at home. To go over sock aid tomorrow and other LB dressing equipment tomorrow. OT ADL-Toileting General Evaluation Toileting Ability Standby Assistance Comments OT Toileting Comments Heavy use of grab bar to stand . Pt able to appropriately wipe for pericare needs with good safety for back precautions. Pt may benefit from BSC at home as her bathroom is 20ft away from her bedroom. OT ADL-Bathing Comments OT Bathing Comments Pt would benefit from assist and tub bench at this time for increased safety for showering needs at home. M5 OT- IP IADL's Start: 01/01/21 15:23 Freq: Status: Active Protocol: Document 01/01/21 13:57 [facility] (Rec: 01/01/21 15:44 [facility] [id number]) OT-Instrumental Activities of Daily Living Home Safety Awareness Awareness of Need for Assistance at Home Decreased Awareness Ability to Problem Solve Emergency Unable to Problem Solve Situations Home Safety Comments Pt not thinking well at this time, aware and feels that it is from the pain medications. Nursing aware. Medication Management Medication Management Comments Pt is not thinking well and would benefit from someone to assist her for all needs. Money Management Money Management Comments Pt is not thinking well and would benefit from someone to assist her for all needs. Meal Preparation Meal Preparation Comments Pt is not thinking well and would benefit from someone to assist her for all needs. Anode Rebuilder Anode Rebuilder Comments Pt is not thinking well and would benefit from someone to assist her for all needs. M6 OT- IP Functional Cognition Start: 01/01/21 15:23 Freq: Status: Active Protocol: Document 01/01/21 13:57 [facility] (Rec: 01/01/21 15:44 [facility] [id number]) Cognitive Factors Limiting Selfcare Function Cognitive Ability Level of Alertness Alert,Confusional State Patient Orientation Name,Place,Situation Attention Span Ability Capable of Focused Attention, Capable of Sustained Attention Ability to Follow Commands Able to Follow One Step Commands with Increased Time, Able to Follow One Step Commands with Repetition Memory Description Short Term Impaired Safety Awareness Decreased Recall of Precautions,Decreased Ability to Apply Precautions, Underestimates Need for Assistance Problem Solving Ability Unable to Identify Errors, Needs Assist to Identify Solutions Cognitive Comments Cognitive Assessment Comments Pain medications may be affecting pt's cognition at this time and unable to recall back precautions and not able to comprehend information regarding her discharge. Pt states will have home health or can have outpt PT if going home. However, pt not able to get out of bed at this time and therefore would not be safe to go home as she lives alone. At the end of the session , pt finally understood that she may need to go to skilled rehab prior to going home. OT- Vision and Hearing OT- Hearing Assessment OT- Hearing Assessment WFL OT- Vision Assessment Visual Acuity Glasses All The Time M7 OT- IP Mobility and Balance Start: 01/01/21 15:23 Freq: Status: Active Protocol: Document 01/01/21 13:57 [facility] (Rec: 01/01/21 15:44 [facility] [id number]) OT- Bed Mobility Assessment Rolling Type of Rolling Roll to Right Level of Assistance Moderate Assistance,1 Person Assistance Supine to Sit Supine to Sit Assist Maximum Assistance,1 Person Assistance OT-Transfer Assessment Sit to and From Stand Sit to and from Stand Minimal Assistance,1 Person Assistance Transfers Transfer Ability Minimal Assistance,Moderate Assistance,1 Person Assistance Technique Transfer Destination Bed,Chair,Toilet Devices Transfer Assistive Devices Gait Belt,Front Wheeled Walker Comments Mobility Comments MAX A for bed mobility needs. MODA to stand from lower surfaces. Pt on1.5L of O2 and at96% and taken off RA for use of bathroom and pt on RA 92% however complaining of feeling whoozy BP 140/50, therefore O2 replaced back on pt and nursing notified. Nursing also notified that pt wanting pain medications and that a chair alarm is needed for the pt as pt is a bit confused now. OT- Gait Assessment Comments Gait Ability Comments MAICO with FWW for level surfaces. OT- Balance Assessment Sitting Balance and Reactions Static Sitting Balance Ability Normal Dynamic Sitting Balance Ability Good Standing Balance and Reactions Static Standing Balance Ability Fair M8 OT- IP Objective Assessments Start: 01/01/21 15:23 Freq: Status: Active Protocol: Document 01/01/21 13:57 [facility] (Rec: 01/01/21 15:44 [facility] [id number]) OT Gross Range of Motion Upper Extremity Range of Motion Assessment Within Functional Limits OT Strength Upper Extremity Strength Assessment Within Functional Limits OT-Muscle Tone Assessment Muscle Tone WNL Yes M9 OT- IP Assessment and Plan Start: 01/01/21 15:23 Freq: Status: Active Protocol: Document 01/01/21 13:57 [facility] (Rec: 01/01/21 15:44 [facility] [id number]) OT Summary Assessment and Plan Potential Rehabilitation Potential Good Analytic Complexity at Evaluation Low Summary OT Impairments Pain,Balance,Functional Cognition,Functional Mobility, Grooming,Dressing,Toileting, Bathing,Toilet Transfers, Shower Transfers,Activity Tolerance Progress Towards Goals Slow Progress due to Medical Issues,Slow Progress due to Cognition Assessment Summary Pt low complexity and main barriers are pain, not thinking well per pt due to pain medications, and needing MAX A for bed mobility needs at this time and also one person assist for ADL needs. Pt lives alone and does not have anyone to assist with her care beside a neighbor to assist to take out the garbage. Pt now realizing that she may need to go to skilled rehab prior to going home. Goals Grooming Goal Independent Dressing Goal Independent Toileting Goal Independent Bathing Goal Independent Toilet Transfer Goal Independent Shower Transfer Goal Independent Patient/Caregiver Education Goal Demonstrate Post-Op Precautions Days to Meet Goals 10 Frequency of Treatment Frequency Of Treatment Once a Day Treatment Plan OT Treatment Plan ADL Training,Functional Cognition Training,Functional Mobility,Patient/Family Education,Discharge Planning Other Treatment Recommendations and Next Shower and LB dressing needs Treatment Focus Discharge Recommendations OT Discharge Recommendations SNF Rehab Home Equipment Needs tub bench, fww, BSC Transportation Needs at Discharge Wheelchair/Cabulance
--- NOTE | 2021-01-01 15:17 | PT.IPTN ---
Addendum entered and electronically signed by Willow Peters PTA 01/01/21 16:44: Vitals taken pre mobility: BP 115/52 HR 65 96% on 1L O2 NC. Pt maintained 90s durign tx on RA, nursing arrived to provide Tylenol during tx for pain and stated ok to remove supplimental O2 during mobiltiy, has been doing well. Original Note: Current Diagnoses Spondylolisthesis, lumbosacral region (12/31/20) Spinal stenosis, lumbar region without neurogenic claudication (12/31/20) Surgery Performed Operation Date: 12/31/20 07:45 Actual Procedures p S1-S2 left hemilaminectomy, L5-S1 TLIF w. posterior instrumentation - Lynn Osei MD Physical Therapy Treatment Note M2 PT-IP Current Condition Start: 12/31/20 14:49 Freq: NEEDED Status: Active Protocol: Document 01/01/21 09:34 AW (Rec: 01/01/21 12:19 AW [id number]) Physical Therapy Current Condition Current Condition Evaluation Date 01/01/21 Treatment Diagnosis s/p L5-S1 TLIF; difficulty in walking Onset Date 12/31/20 Precautions Lumbar Precautions Log Roll,No Twisting,Limit Bending,Lifting Restriction of 10 lbs,Gait Belt above Incisional Area Weight Bearing Status Weight Bearing Status Weight Bear as Tolerated M3 PT-IP Subjective Start: 12/31/20 14:49 Freq: NEEDED Status: Active Protocol: Document 01/01/21 14:51 SP (Rec: 01/01/21 16:43 SP [id number]) Subjective Physical Therapy Visit Type Type Treatment Note Visit Start Time 14:51 Visit Stop Time 15:17 Total Visit Minutes 26 Notes Pt reports am not a morning person, don't arrive tomorror until after 10 am. Number of VISE HAND Visits 1 Physical Therapy Visit Comments Patient Comments Pt agreeable to working with therapy. Therapy Pain Assessment Pain When Pain Assessed At Rest Pain Present Pain Present Pain Reported Location Back Intensity 8 Scale Used 8/10 at rest, 10/10 during mobility Description Acute,Sharp,Spasm,Tightness, With Movement Pain Behaviors Facial Grimacing,Guarding, Moaning,Restlessness,Wincing Pain Management Techniques Apply Cold,Modification of Treatment,Re-positioning, Timing of Activity with Medications M4 PT-IP Mobility and Gait Start: 12/31/20 14:49 Freq: NEEDED Status: Active Protocol: Document 01/01/21 14:51 SP (Rec: 01/01/21 16:43 SP [id number]) PT-Bed Mobility Assessment Rolling Type of Rolling Log Rolling,Roll to Left Level of Assist Minimal Assistance,1 Person Assistance Sit to Supine Sit to Supine Maximum Assistance,1 Person Assistance,Bedrails PT-Transfer Assessment Sit to and From Stand Sit to and from Stand Moderate Assistance,Maximum Assistance,1 Person Assistance ,Use of Upper Extremities Equipment Transfer Assistive Device Gait Belt,4 Wheeled Walker Orthotic/Prosthetic Devices or Brace: No Transfers Transfer Destination Bed Transfer Technique Pt ambulated using 4WW Transfer Ability Level of Assist Minimal Assistance,1 Person Assistance,Use of Upper Extremities Comments Mobility Comments Pt was upright in chair when arrived. Pt reported LBP 8/10 at rest but agreeable to doing PT. Scoot to EOchair Min A, Sit>stand completed on 2nd attempt with cuing and quad tapping to facilitate quad knee extension at end range stand and breath once standing for assist pain control, return to sitting to adjust proper height 3 notches lower ( used in past). Sit> stand Rainer with better LE and UE self strength. Pt ambulate to door and back to R side of bed, good pivot with cuing for full and lock brakes for safety,reach back. Sit>R Side lying>supine with Max A for trunk stay on side and support BLE on to bed and LR to L. Pt was able to lateral scoot and center self using bed rail. Pt had call light and all needs in reach with bed alarmed for safety. [employer] provided warm blankets per pt request. Gait Assessment Gait Gait Assistance Required: Minimum Assistance,1 Person Assist Distance (Feet) 30 Able to Maintain Weight Bearing Status Yes During Gait Assistive Devices Assistive Device Gait Belt,Front Wheeled Walker Orthotic/Prosthetic Devices or Brace: No Gait Deviations General Gait Pattern Antalgic,Decreased Stride Length,Decreased Feet Clearance,Flexed Trunk,Step-to Gait Factors Limiting Gait Function Factors Limiting Gait Function Decreased Activity Tolerance, Decreased Strength,Limited Range of Motion,Pain,Poor Balance Comments Gait Comments Cued body closer to 4WW, upright posture and core facilitation to decrease LB reactive during steps at times , Min A x1, assist slow 4WW cued brake mgt for slow speed. Recommend use of fWW for now. Stair Climbing Assessment Comments Stair Climbing Comments Not assessed, due to decreased strength, pain. Will need to complete 2 smaller PF steps prior to going home. Pt is unsure if the platform is big enough for FWW/ 4WW. PT-Balance Assessment Sitting Balance and Reactions Static Sitting Balance Ability Good Dynamic Sitting Balance Ability Fair Standing Balance and Reactions Static Standing Balance Ability Fair Dynamic Standing Balance Ability Poor Device Used 4WW M5 PT-IP Objective Assessments Start: 12/31/20 14:49 Freq: NEEDED Status: Active Protocol: Document 01/01/21 09:34 AW (Rec: 01/01/21 12:19 AW [id number]) Orientation Orientation/Cognition Level of Alertness Lethargic Orientation Name,Day of Week,Place, Situation Language Function Ability No Deficits Noted Safety Awareness Decreased Safety Awareness Comments Pt was lethargic due to pain medication. RN notified. Gross Range of Motion Lower Extremity ROM Assessment Within Functional Limits Strength Lower Extremity Strength Assessment Bilaterally Impaired Hip 4-/5 Knee 4-/5 Ankle 4/5 Sensation Assessment Sensation Gross Sensation WNL Muscle Tone Muscle Tone WNL Yes M6 PT-IP Treatment Start: 12/31/20 14:49 Freq: NEEDED Status: Active Protocol: Document 01/01/21 14:51 SP (Rec: 01/01/21 16:43 SP [id number]) Physical Therapy Treatment Education Education Provided Precautions,Weight Bearing Status,Safety Other Treatments Other Treatment Performed Educated pt on post op precautions, and safe use of 4WW. Recommend use of FWW at this time, pt inconsistant with brake mgt and use of brakes for slow pacing and keeping close to body. M7 PT-IP Assessment and Plan Start: 12/31/20 14:49 Freq: NEEDED Status: Active Protocol: Document 01/01/21 14:51 SP (Rec: 01/01/21 16:43 SP [id number]) PT Summary Assessment and Plan Potential Rehabilitation Potential Good Status of Condition at Evaluation Evolving Summary Impairments Pain,ROM,Strength,Balance,Bed Mobility,Transfers,Gait, Activity Tolerance Progress Towards Goals Progressing Toward Goals,Slow Progress due to Pain,Slow Progress due to Activity Tolerance Assessment Summary Pt requires Mod- Max A A x1 during all mobility using FWW vs 4WW, recommend use of FWW at this time due to safety suported needed during use of 4WW. Pt will need to complete stair mgt before DC home. Pt lives alone and requires physical assist for all mobility with cuing for proper trunk posture. Pt lives alone and doesn't have anyone to help her. Recommend SNF upon DC at this time to allow for improved increase strength toward functional independence , more education with maintain spinal precautions. Goals Bed Mobility Goal Independent Transfer Goal Independent,Front Wheeled Walker Gait Goal Independent,Front Wheel Walker Gait Distance 150 Other Goals - up/down 2 steps with B rails IND - progress gait to 150 feet with 4WW Days to Meet Goals 8 Frequency of Treatment Frequency Of Treatment Twice a Day Treatment Plan Physical Therapy Treatment Plan Bed Mobility Training,Transfer Training,Gait Training, Therapeutic Exercise,Balance Retraining,Post Op Education, Discharge Planning,Hot or Cold Pack Other Recommendations and Next Treatment review precautions; log roll; Focus gait train with FWW; stairs when able. Precautions Lumbar Precautions Log Roll,No Twisting,Limit Bending,Lifting Restriction of 10 lbs,Gait Belt above Incisional Area Recommendations To Nursing Amount of Assist Needed 1 Person Assist Discharge Recommendations PT Discharge Recommendations SNF Rehab Other Discharge Recommendations SNF Equipment Needed for Home Before FWW if not safe with 4WW Discharge Transportation Needs at Discharge Private Vehicle,Wheelchair/ Cabulance
[2021-01-01] MEDS: TRAZODONE 50 MG TABLET 100 MG PO (20:58)
[2021-01-01] MEDS: SENNOSIDES 8.6 MG TABLET 17.2 MG PO (20:59)
--- NOTE | 2021-01-01 22:57 | PC.NURSE ---
VSS. B. A&Ox3. Pain high this shift around 10/10 in her back, given 10mg Oxycodone PRN x2 with some relief. Dressing cdi. O2 drops to around 88% when patient is sleeping. On 2L nasal cannula sating around 96 when sleeping. Room air when awake. Need frequent reminds to log roll and avoid twisting her spine. 1 person assist to BSC. IV saline locked.
[2021-01-02] VITALS (8 sets, daily range): BP systolic 107–133; BP diastolic 47–63; PULSE 73–90; RESP 10–22; TEMP 36.7–37.4; O2SAT 88–96
[2021-01-02] MEDS: LEVOTHYROXINE 100 MCG TABLET PO (05:16)
[2021-01-02] MEDS: PANTOPRAZOLE 20 MG TABLET PO (05:16)
[2021-01-02] MEDS: OXYCODONE IR 5 MG TABLET 10 MG PO (05:16)
--- NOTE | 2021-01-02 07:35 | PM.PNPO.1 ---
Subjective Subjective Date Patient Seen: 01/02/21 Time Patient Seen: 07:35 Interval history: Patient's pain is been moderate to severe specially with movement. Denies fever or chills. Some nausea no vomiting. Exam Vital Signs (past 8 hours): - 01/01/21 23:40 01/02/21 04:41 Temperature 99.6 F 98.0 F Pulse Rate 73 Respiratory Rate 18 Blood Pressure 120/63 Pulse Oximetry 92 Oxygen Delivery Method Nasal Cannula Oxygen Flow Rate 2 Narrative Exam Narrative: 75-year-old female resting comfortably in bed in no apparent distress. Motor function is intact bilateral lower extremities. Sensation grossly intact to light touch bilateral lower extremities. Dressing is Clean, dry, intact. [facility] [place] Medical History Arthritis Cardiac arrhythmia (~2013) Cataract fragments in eye following surgery Cataracts, bilateral (~1994) Chronic back pain Chronic diarrhea Constipation Diabetes Diarrhea Diverticulosis (~2017) Flesh-eating bacteria (~2000) Grief reaction Hyperlipidemia Hypothyroidism Left shoulder pain (~2020) Restless leg syndrome Spinal stenosis Spondylolisthesis, lumbar region Surgical History Anesthesia Broken collarbone (~2011) Diverticular disease (~2017) History of cholecystectomy History of colonoscopy with polypectomy History of hysterectomy Hx of arthroscopy Hx of LASIK S/P cervical spinal fusion S/P colectomy Family History Father History of heart disease Mother Rheumatoid arthritis Brother History of heart disease Brother Cancer Social History marital status: unknown household members: none Smoking Status: Never smoker alcohol intake: never substance use type: does not use Assessment & Plan Post-op Postoperative Procedures: Procedures Operation Date: 12/31/20 07:45 Actual Procedures Side Surgeon p S1-S2 left hemilaminectomy, L5-S1 TLIF w. posterior instrumentation Lynn Osei MD Postop day 2. Patient progressing slower than expected. Physical therapy is recommending residential facility. Continue work on pain control. Mobilize with physical therapy. Possible discharge to residential facility or home tomorrow.
[2021-01-02] MEDS: METOPROLOL ER 25 MG TABLET PO (09:29)
[2021-01-02] MEDS: DOCUSATE 100 MG CAPSULE PO ×2 (09:29→19:59)
[2021-01-02] MEDS: VITAMIN E 400 UNIT CAPSULE PO (09:29)
[2021-01-02] MEDS: CHOLECALCIFEROL (VITAMIN D3) 1,000 UNIT TABLET 1000 UNIT PO (09:29)
[2021-01-02] MEDS: FERROUS SULFATE 325 MG TABLET PO (09:30)
[2021-01-02] MEDS: FUROSEMIDE 20 MG TABLET PO (09:30)
[2021-01-02] MEDS: METFORMIN HCL 500 MG TABLET PO ×2 (09:30→19:59)
[2021-01-02] MEDS: hydrOXYzine pamoate 25 MG CAPSULE PO ×4 (09:30→21:02)
[2021-01-02] MEDS: ACETAMINOPHEN 325 MG TABLET 650 MG PO (09:33)
[2021-01-02] MEDS: ESCITALOPRAM 10 MG TABLET PO ×2 (09:34→19:59)
[2021-01-02] MEDS: SODIUM CHLORIDE 0.9% FLUSH 10 ML IV ×2 (09:36→21:02)
--- NOTE | 2021-01-02 10:21 | PT.IPTN ---
Current Diagnoses Spondylolisthesis, lumbosacral region (12/31/20) Spinal stenosis, lumbar region without neurogenic claudication (12/31/20) Surgery Performed Operation Date: 12/31/20 07:45 Actual Procedures p S1-S2 left hemilaminectomy, L5-S1 TLIF w. posterior instrumentation - Lynn Osei MD Physical Therapy Treatment Note M2 PT-IP Current Condition Start: 12/31/20 14:49 Freq: NEEDED Status: Active Protocol: Document 01/01/21 09:34 AW (Rec: 01/01/21 12:19 AW [id number]) Physical Therapy Current Condition Current Condition Evaluation Date 01/01/21 Treatment Diagnosis s/p L5-S1 TLIF; difficulty in walking Onset Date 12/31/20 Precautions Lumbar Precautions Log Roll,No Twisting,Limit Bending,Lifting Restriction of 10 lbs,Gait Belt above Incisional Area Weight Bearing Status Weight Bearing Status Weight Bear as Tolerated M3 PT-IP Subjective Start: 12/31/20 14:49 Freq: NEEDED Status: Active Protocol: Document 01/02/21 09:51 SP (Rec: 01/02/21 16:00 SP [id number]) Subjective Physical Therapy Visit Type Type Treatment Note Visit Start Time 09:51 Visit Stop Time 10:21 Total Visit Minutes 30 Notes Pt reports am not a morning person, don't arrive tomorror until after 10 am. Number of OUTSOLES CHANNEL OPENER Visits 2 Physical Therapy Visit Comments Patient Comments Pt agreeable to working with therapy. Therapy Pain Assessment Pain When Pain Assessed At Rest Pain Present Pain Present Pain Reported Location Back Intensity 8 Scale Used Numeric (0 - 10) Description Acute,Sharp,Spasm,Tightness, With Movement Pain Behaviors Facial Grimacing,Guarding, Moaning,Restlessness,Wincing Pain Management Techniques Apply Cold,Modification of Treatment,Re-positioning, Timing of Activity with Medications M4 PT-IP Mobility and Gait Start: 12/31/20 14:49 Freq: NEEDED Status: Active Protocol: Document 01/02/21 09:51 SP (Rec: 01/02/21 16:00 SP [id number]) PT-Bed Mobility Assessment Rolling Type of Rolling Log Rolling,Roll to Right Level of Assist Maximal Assistance,1 Person Assistance Supine to Sit Supine to Sit Maximum Assistance,1 Person Assistance,Bedrails Sit to Supine Sit to Supine Maximum Assistance,1 Person Assistance,Bedrails Scooting Scooting to Edge of Bed Moderate Assistance Scooting Up and Down in Bed Moderate Assistance PT-Transfer Assessment Sit to and From Stand Sit to and from Stand Moderate Assistance,Maximum Assistance,1 Person Assistance ,Use of Upper Extremities Equipment Transfer Assistive Device Gait Belt,Front Wheeled Walker Orthotic/Prosthetic Devices or Brace: No Transfers Transfer Destination Bed Transfer Technique Pt ambulated using FWW Transfer Ability Level of Assist Minimal Assistance,1 Person Assistance Comments Mobility Comments Instruction on exercises can do in bed for strength and circulation: ankle pumps, heel slides, hip abd x3 each LE. Cued knees bent cross L arm across body to reach bed rail for self support Max A x1 with cuing for sequencing, R sidely>sitting Max A x1 for trunk righting and LE repositioning with cues. Scoot to EOB Mod A. Donned gait belt for safety support. Sit> stand heavy WB with cuing for hand placement 1 FWW, push from bed other, Max A initially with cuing for quad facilitation knee extension, completed in 1st attempt this tx, ambulated to bathroom Min A using FWW, cued step pivot front toilet and back up fully , full assist for brief mgt, cued use of grab bar w/ RUE and LUE on FWW for slow descent. Pt was able to void, required assist after difficult self hygiene in sitting. Sit>stand Min A with grab bar and fWW support, full assist for brief mgt then walked backt to closet and back to R side of bed approx 20 ft. Sit>supine Max A x1, support for trunk righting to L onto RUE and BLE repositioning onto bed then L log roll to back with Rainer. Pt required Max A for pelvis lateral scoot to center and trunk to slide down in bed using BUE on rails and BLE wB on bed. Pt had call light and allneeds in reach, bed alarmed . Gait Assessment Gait Gait Assistance Required: Minimum Assistance,1 Person Assist Distance (Feet) 20 Able to Maintain Weight Bearing Status Yes During Gait Assistive Devices Assistive Device Gait Belt,Front Wheeled Walker Orthotic/Prosthetic Devices or Brace: No Gait Deviations General Gait Pattern Antalgic,Decreased Stride Length,Decreased Feet Clearance,Flexed Trunk,Step-to Gait Factors Limiting Gait Function Factors Limiting Gait Function Decreased Activity Tolerance, Decreased Strength,Limited Range of Motion,Pain,Poor Balance Comments Gait Comments Cued body closer to FWW, increased stride length and foot clearance, Min A. Stair Climbing Assessment Comments Stair Climbing Comments Not assessed, due to decreased strength, pain. Will need to complete 2 smaller PF steps prior to going home. Pt is unsure if the platform is big enough for FWW/ 4WW. PT-Balance Assessment Sitting Balance and Reactions Static Sitting Balance Ability Normal Dynamic Sitting Balance Ability Good Standing Balance and Reactions Static Standing Balance Ability Fair Dynamic Standing Balance Ability Poor Device Used FWW M5 PT-IP Objective Assessments Start: 12/31/20 14:49 Freq: NEEDED Status: Active Protocol: Document 01/01/21 09:34 AW (Rec: 01/01/21 12:19 AW [id number]) Orientation Orientation/Cognition Level of Alertness Lethargic Orientation Name,Day of Week,Place, Situation Language Function Ability No Deficits Noted Safety Awareness Decreased Safety Awareness Comments Pt was lethargic due to pain medication. RN notified. Gross Range of Motion Lower Extremity ROM Assessment Within Functional Limits Strength Lower Extremity Strength Assessment Bilaterally Impaired Hip 4-/5 Knee 4-/5 Ankle 4/5 Sensation Assessment Sensation Gross Sensation WNL Muscle Tone Muscle Tone WNL Yes M6 PT-IP Treatment Start: 12/31/20 14:49 Freq: NEEDED Status: Active Protocol: Document 01/02/21 09:51 SP (Rec: 01/02/21 16:00 SP [id number]) Physical Therapy Treatment Exercises Exercises Ankle Pumps,Gluteal Sets,Quad Sets,Heel Slides Knee ROM Measurement 45 deg AROM Education Education Provided Precautions,Weight Bearing Status,Safety Other Treatments Other Treatment Performed Educated pt on post op precautions, and safe use of 4WW. Recommend continued use of FWW at this time for slow pacing control. M7 PT-IP Assessment and Plan Start: 12/31/20 14:49 Freq: NEEDED Status: Active Protocol: Document 01/02/21 09:51 SP (Rec: 01/02/21 16:00 SP [id number]) PT Summary Assessment and Plan Potential Rehabilitation Potential Good Status of Condition at Evaluation Evolving Summary Impairments Pain,ROM,Strength,Balance,Bed Mobility,Transfers,Gait, Activity Tolerance Progress Towards Goals Progressing Toward Goals,Slow Progress due to Pain,Slow Progress due to Activity Tolerance Assessment Summary Pt requires Mod- Max A x1 during all mobility using FWW. Pt will need to complete stair mgt before DC home. Pt lives alone and requires physical assist for all mobility with cuing for proper trunk posture. Pt lives alone and doesn't have anyone to help her. Recommend SNF upon DC at this time to allow for improved increase strength toward functional independence , more education with maintain spinal precautions. Goals Bed Mobility Goal Independent Transfer Goal Independent,Front Wheeled Walker Gait Goal Independent,Front Wheel Walker Gait Distance 150 Other Goals - up/down 2 steps with B rails IND - progress gait to 150 feet with 4WW Days to Meet Goals 8 Frequency of Treatment Frequency Of Treatment Twice a Day Treatment Plan Physical Therapy Treatment Plan Bed Mobility Training,Transfer Training,Gait Training, Therapeutic Exercise,Balance Retraining,Post Op Education, Discharge Planning,Hot or Cold Pack Other Recommendations and Next Treatment review precautions; log roll; Focus bed mobility, gait train with FWW; stairs when able. Precautions Lumbar Precautions Log Roll,No Twisting,Limit Bending,Lifting Restriction of 10 lbs,Gait Belt above Incisional Area Recommendations To Nursing Amount of Assist Needed 1 Person Assist Discharge Recommendations PT Discharge Recommendations SNF Rehab Other Discharge Recommendations SNF Equipment Needed for Home Before FWW if not safe with 4WW Discharge Transportation Needs at Discharge Private Vehicle,Wheelchair/ Cabulance
[2021-01-02] MEDS: OXYCODONE IR 5 MG TABLET PO ×3 (10:51→19:59)
--- NOTE | 2021-01-02 11:34 | CM.DANOTE ---
DCP/Assessment: Reviewed chart. Patient is a 75yr old female admitted [facility] for elective spine surgery with Dr. Osei. PCP listed is Wilbur Haas. Primary payor is 1)Medicare 2)[place] sindy Paet. Met with patient on the afternoon of 01-01-21 explained CM/SW role. Patient was POD#1 and having a lot of pain during visit. Patient reports that she resides alone and would be interested in going to SNF when stable. Patient provided with SNF choice list and first choice is [facility]. Placed call to [facility] on 01-01-21 spoke with Elida. She reviewed and reports that they can accept when stable. P: [facility] when stable. D/C not anticipated before 01-03-21. GERRI Singh Discharge Planning/Care Management CM Discharge Assessment Start: 01/02/21 11:29 Freq: Status: Active Protocol: Document 01/02/21 11:29 KJS (Rec: 01/02/21 11:34 KJS [id number]) Discharge Planning Assessment Assigned Hydrometeorological Technician GERRI Singh DPOA/Assigned Designee Name Maryjane Blancas (ph# [phone]) . Advance Directives? Yes: DPOA Advance Directives on File No History Provided By Patient,Medical Record Prior Living Arrangements House Household Members none Independent with ADL's Yes Is patient alert and oriented? Yes: In a lot of pain during inital visit, POD#1 Caregiver for Another No Patient/Family Preference [facility] Facility Barriers to Discharge No Discharge Plan [facility] Facility Transportation Arrangement Facility Referrals Initiated [facility] Medicare Choice List Provided Yes SNF/HH Preference [facility] Contact Name/Phone March at ph#[phone] Has Agency SNF been contacted Yes Comment [facility] CC has accepted. Whiteboard Updated in Patient Room with Yes name and ext. # of Hydrometeorological Technician Review Status In Process Next Review Type Continued Stay Review Pre-Anesthesia Assessment Start: 11/21/20 16:40 Freq: Status: Active Protocol: Document 11/21/20 16:40 RANDY (Rec: 11/21/20 16:50 RANDY [id number]) Pre-Anesthesia Assessment Patient Information Reviewed Via Chart Review Seen Specialist in Last 12 Months Yes Specialist Seen Orthopedist Height 160.02 cm Hx Anesthesia Reactions Yes Hx Family Anesthesia Reaction No Hx Malignant Hyperthermia No Hx Blood Transfusion Reaction No Anesthesia Review Requested No Rip And Groove Machine Operator No alcohol intake never Smoking Status Never smoker Substance Use Type does not use Musculoskeletal Symptoms Abnormal Gait,Back Pain, Radiating Pain into Limb Ambulatory Aid None/bed rest/nurse assist Comment Difficulty performing ADLs CPAP/BIPAP use not prescribed Hx Pacemaker/ICD No Hx Urinary Self Catheterization No Diabetes Yes Presence of External or Internal Medical Yes: loop recorder Devices Lives With none Patient Discharge Plan Description Return Home Advance Directives? No Document 12/17/20 16:17 RANDY (Rec: 12/17/20 17:13 RANDY [id number]) Pre-Anesthesia Assessment PAC Comment Grief - lost 01/12 and granddaughter was murdered 2 weeks ago 12/18/20 Left message at [facility] to request mental health referral, asked them to reach out to patient regarding the request and to try to get her seen prior to her surgery on 12/18/20 Let pt know that I had requested the referral; reviewed medication pre-op use Preferred Name [facility] Patient Information Reviewed Via Chart Review,Phone Assessment Assessment Completed With Patient Primary Care Provider Wilbur Haas Seen Specialist in Last 12 Months Yes Specialist Seen Dust Mill Operator,Orthopedist, Heavy Cleaner Primary Language Cymro Preferred Language [facility] Required No Height 160.02 cm Hearing Ability Normal Visual Assist Glasses Dentition Type Teeth, Natural Present Barriers to Learning Memory,Visual Other Aids No Comment short term memory Hx Anesthesia Reactions No Hx Family Anesthesia Reaction No Hx Malignant Hyperthermia No Hx Blood Transfusions No Hx Blood Transfusion Reaction No Anesthesia Review Requested No Rip And Groove Machine Operator No alcohol intake never Smoking Status Never smoker Substance Use Type does not use Pain Present Denied Pain Musculoskeletal Symptoms Abnormal Gait,Back Pain,Joint Stiffness,Limited Range of Motion,Radiating Pain into Limb History of Falling (Recent or History of No ) Patient is completely paralyzed or No completely immobile Ambulatory Aid None/bed rest/nurse assist Gait/Transferring Normal/bedrest/immobile Mental Status Oriented to own ability Comment Difficulty performing ADLs Is patient on oxygen? No Does patient have KNAPP/SOB No Hx Sleep Apnea No CPAP/BIPAP use not prescribed Currently Taking a Beta Diane Yes: Metoprolol Can You Climb a Flight of Stairs Without No SOB Hx Chest Pain No Hx SOB Yes Hx Syncope or Dizziness No Anti-Coagulant Therapy Yes: Apixaban BID Has a Dust Mill Operator Yes: Mallone Cardiac Testing Yes Hx Pacemaker/ICD No Gastrointestinal Symptoms Diarrhea Bladder Pattern Nocturia Urinary Catheter Present No Hx Urinary Self Catheterization No Diabetes Yes HgbA1C 6.6 Date 09/26/20 Patient No Lactating No Hx Drug Resistant Organism No Presence of External or Internal Medical Yes: loop recorder Devices Have you had any close contact with No someone diagnosed with COVID-19? Are you experiencing any of these Diarrhea symptoms? Evaluation/Screening for possible COVID- Yes 19 infection completed? Comment diarrhea - baseline Marital Status / Lives With none Prior Living Arrangements House Number of Floors (Floors) One Floor Number of Stairs To Enter/Railing? 1 step into home Does the Patient Have Assistance After No Surgery Patient Discharge Plan Description Home Health,Return Home Comment [facility] Additional comment Daughter is a teacher - unable to help Feels Safe in Current Environment Yes Been Physically Hurt or Threatened By a No Person in Current Environment Do you have thoughts of harming yourself None or others? Are you currently considering suicide? No Do you have a plan to hurt yourself or No Plan others? Comment Interested in a counselor to help process losses/grief Do You Have Any Spiritual Beliefs That No May Affect Your HC Choices? Do You Have Any Cultural Practices That No May Affect Your HC Choices? Who Can We Speak to About Patient's Care Family & Friends Identifying Code for Release of Patient Declined Information Health Care Proxy/Next of Kin Maryjane Blancas - daughter Health Care Proxy Emergency Contact Name Maryjane Blancas - daughter Emergency Contact Advance Directives? Yes Advance Directives on File No Requested Patient Bring Advanced Yes Directives DOS Power of Government Affairs Fellow Yes PAC Instructions Assistance for 24 hours post- op,Diabetes instructions,Do not shave/clip surgical site, Durable medical equipment, Medications to take/avoid, Nasal antibiotic,No ETOH/ petroleum product on skin DOS, NPO,Post-op transportation,Pre -op antibiotic,Pre-surgical wash,Sensory aids,Sturdy shoes /comfortable clothes,Do not bring valuables and remove jewelry
--- NOTE | 2021-01-02 12:30 | OT.IP.TRT ---
Current Diagnoses Spondylolisthesis, lumbosacral region (12/31/20) Spinal stenosis, lumbar region without neurogenic claudication (12/31/20) Surgery Performed Operation Date: 12/31/20 07:45 Actual Procedures p S1-S2 left hemilaminectomy, L5-S1 TLIF w. posterior instrumentation - Lynn Osei MD Occupational Therapy Treatment Note M2 OT-IP Current Condition Start: 01/01/21 15:23 Freq: Status: Active Protocol: Document 01/01/21 13:57 [facility] (Rec: 01/01/21 15:44 [facility] [id number]) Occupational Therapy Current Condition Current Condition Evaluation Date 01/01/21 Treatment Diagnosis S/p S1-2 hemilaminectomy, L5- S1 TLIF with posterior inst. Post Operative Precautions Lumbar Precautions Log Roll,No Twisting,Limit Bending,Lifting Restriction of 10 lbs,Gait Belt above Incisional Area M3 OT- IP Subjective and Pain Start: 01/01/21 15:23 Freq: Status: Active Protocol: Document 01/02/21 12:38 [facility] (Rec: 01/02/21 12:51 [facility] [id number]) OT- Subjective Occupational Therapy Visit Type Type Treatment Note Visit Start Time 12:05 Visit Stop Time 12:30 Total Visit Minutes 25 Occupational Therapy Visit Comments Patient Comments Pt wanting to use the bathroom . Patient/Caregiver Goals To get stronger and be able to shower on her own so that her son does not have to come and help her. OT Pain Assessment Pain When Pain Assessed At Rest Pain Present Pain Present Denied Pain M4 OT- IP ADL's Start: 01/01/21 15:23 Freq: Status: Active Protocol: Document 01/02/21 12:38 [facility] (Rec: 01/02/21 12:51 [facility] [id number]) OT DIT-Qvif-Oaonvff General Evaluation Self-Feeding Ability Independent OT ADL-Grooming General Evaluation Grooming Ability Standby Assistance Comments OT Grooming Comments Able to do while standing at sink with FWW. OT ADL-Dressing General Eval Lower Body Dressing Ability Maximum Assistance Areas Needing Assistance Underpants/Brief Comments OT Dressing Comments Pt needing assist to carlos/doff brief over her hips during toileting. OT ADL-Toileting General Evaluation Toileting Ability Moderate Assistance Areas Needing Assistance Manage Clothing Devices Toileting Assistive Devices Grab Bars Comments OT Toileting Comments Pt needing assist to carlos/doff brief over her hips. OT ADL-Bathing Comments OT Bathing Comments Pt states not wanting to shower at this time. M5 OT- IP IADL's Start: 01/01/21 15:23 Freq: Status: Active Protocol: Document 01/01/21 13:57 [facility] (Rec: 01/01/21 15:44 [facility] [id number]) OT-Instrumental Activities of Daily Living Home Safety Awareness Awareness of Need for Assistance at Home Decreased Awareness Ability to Problem Solve Emergency Unable to Problem Solve Situations Home Safety Comments Pt not thinking well at this time, aware and feels that it is from the pain medications. Nursing aware. Medication Management Medication Management Comments Pt is not thinking well and would benefit from someone to assist her for all needs. Money Management Money Management Comments Pt is not thinking well and would benefit from someone to assist her for all needs. Meal Preparation Meal Preparation Comments Pt is not thinking well and would benefit from someone to assist her for all needs. Youth Court Judge Youth Court Judge Comments Pt is not thinking well and would benefit from someone to assist her for all needs. M6 OT- IP Functional Cognition Start: 01/01/21 15:23 Freq: Status: Active Protocol: Document 01/02/21 12:38 [facility] (Rec: 01/02/21 12:51 [facility] [id number]) Cognitive Factors Limiting Selfcare Function Cognitive Ability Level of Alertness Alert,Confusional State Patient Orientation Name,Place,Situation Attention Span Ability Capable of Focused Attention, Capable of Sustained Attention Ability to Follow Commands Able to Follow One Step Commands with Increased Time, Able to Follow One Step Commands with Repetition Memory Description Short Term Impaired Safety Awareness Decreased Recall of Precautions,Decreased Ability to Apply Precautions, Underestimates Need for Assistance Problem Solving Ability Unable to Identify Errors, Needs Assist to Identify Solutions Cognitive Comments Cognitive Assessment Comments Pt still a little confused and not able to recall all her back precautions. Pt still needing safety cues to push up from surface sitting on versus grabbing the FWW to stand. M7 OT- IP Mobility and Balance Start: 01/01/21 15:23 Freq: Status: Active Protocol: Document 01/02/21 12:38 [facility] (Rec: 01/02/21 12:51 [facility] [id number]) OT-Transfer Assessment Sit to and From Stand Sit to and from Stand Minimal Assistance,1 Person Assistance Transfers Transfer Ability Minimal Assistance,1 Person Assistance Technique Transfer Destination Chair,Toilet Devices Transfer Assistive Devices Gait Belt,Front Wheeled Walker Comments Mobility Comments Pt already seated in recliner, MAICO x1 to stand and unable to stand the first time. having to educate pt to try not to stop half way during transitions and be sure to use her legs to stand and then grab the FWW. OT- Gait Assessment Comments Gait Ability Comments MAICO for level surfaces with FWW OT- Balance Assessment Sitting Balance and Reactions Static Sitting Balance Ability Normal Dynamic Sitting Balance Ability Good Standing Balance and Reactions Static Standing Balance Ability Fair M8 OT- IP Objective Assessments Start: 01/01/21 15:23 Freq: Status: Active Protocol: Document 01/02/21 12:38 [facility] (Rec: 01/02/21 12:51 [facility] [id number]) OT Gross Range of Motion Upper Extremity Range of Motion Assessment Within Functional Limits OT Strength Upper Extremity Strength Assessment Within Functional Limits M9 OT- IP Assessment and Plan Start: 01/01/21 15:23 Freq: Status: Active Protocol: Document 01/02/21 12:38 [facility] (Rec: 01/02/21 12:51 [facility] [id number]) OT Summary Assessment and Plan Potential Rehabilitation Potential Good Analytic Complexity at Evaluation Low Summary OT Impairments Pain,Balance,Functional Cognition,Functional Mobility, Grooming,Dressing,Toileting, Bathing,Toilet Transfers, Shower Transfers,Activity Tolerance Progress Towards Goals Slow Progress due to Medical Issues,Slow Progress due to Cognition Assessment Summary Pt still needing extensive assist for needs and pt agrees to go to skilled rehab as pt lives alone. Pt to go to skilled rehab when medically stable. To attempt shower with pt tomorrow. Goals Grooming Goal Independent Dressing Goal Independent Toileting Goal Independent Bathing Goal Independent Toilet Transfer Goal Independent Shower Transfer Goal Independent Patient/Caregiver Education Goal Demonstrate Post-Op Precautions Days to Meet Goals 9 Frequency of Treatment Frequency Of Treatment Once a Day Treatment Plan OT Treatment Plan ADL Training,Functional Cognition Training,Functional Mobility,Patient/Family Education,Discharge Planning Other Treatment Recommendations and Next Shower and LB dressing needs Treatment Focus Discharge Recommendations OT Discharge Recommendations SNF Rehab Home Equipment Needs tub bench, fww, BSC Transportation Needs at Discharge Wheelchair/Cabulance
[2021-01-02] MEDS: MAGNESIUM HYDROXIDE 30 ML UDC PO (13:21)
--- NOTE | 2021-01-02 14:58 | CM.DPNOTE ---
Rubina from [facility] called and said to let her know when patient is discharged. Heidi Escalera CM Asst.
--- NOTE | 2021-01-02 15:38 | PT-IP ANOTE ---
Pt declined pm tx x2 attempts, first she just got back to bed with LABORATORY TECHNICAL SPECIALIST from using bathroom, 2nd in pain and nursing providing pain meds. Pt stated I can't this afternoon. I will do better tomorrow, I need to get moving more and farther. Pt was not seen for therapy in pm will return in am for further assessment. Pt suggested after 10 am tomorrow.
[2021-01-02] MEDS: MAG HYDROX/ALUM/SIMETH 30 ML UDC PO (15:39)
--- NOTE | 2021-01-02 16:07 | PC.NURSE ---
Patient given PO Oxycodone 5mg at 1538. O2 dropped to 88% on room air. 2L was placed and now patient is at 95% sleeping.
[2021-01-02] MEDS: TRAZODONE 50 MG TABLET 100 MG PO (19:59)
[2021-01-02] MEDS: SENNOSIDES 8.6 MG TABLET 17.2 MG PO (19:59)
[2021-01-03] VITALS (7 sets, daily range): BP systolic 103–112; BP diastolic 51–60; PULSE 71–88; RESP 12–18; TEMP 36.9–38.3; O2SAT 83–94
[2021-01-03] MEDS: ACETAMINOPHEN 325 MG TABLET 650 MG PO (03:40)
[2021-01-03] MEDS: OXYCODONE IR 5 MG TABLET PO (03:41)
[2021-01-03] MEDS: PANTOPRAZOLE 20 MG TABLET PO (06:43)
[2021-01-03] MEDS: LEVOTHYROXINE 100 MCG TABLET PO (06:43)
[2021-01-03] MEDS: METOPROLOL ER 25 MG TABLET PO (08:36)
[2021-01-03] MEDS: CHOLECALCIFEROL (VITAMIN D3) 1,000 UNIT TABLET 1000 UNIT PO (08:37)
[2021-01-03] MEDS: METFORMIN HCL 500 MG TABLET PO (08:37)
[2021-01-03] MEDS: OXYCODONE IR 5 MG TABLET 10 MG PO ×2 (08:38→12:09)
[2021-01-03] MEDS: DOCUSATE 100 MG CAPSULE PO (08:39)
[2021-01-03] MEDS: FERROUS SULFATE 325 MG TABLET PO (08:39)
[2021-01-03] MEDS: FUROSEMIDE 20 MG TABLET PO (08:39)
--- NOTE | 2021-01-03 08:42 | P.DS_ITS ---
History of Present Illness History of Present Illness Date Patient Seen: 01/03/21 Time Patient Seen: 08:42 Chief complaint: TLIF Narrative: Patient has been having chronic back pain and worsening lumbar radiculopathy. Patient failed multiple conservative management with worsening pain weakness and numbness in her lower extremity. Patient has been having difficulty performing activity of daily living. After discussing risks benefits of treatment options, patient elected proceed with surgery. Discharge Providers Provider Date of admission: 12/31/20 05:43 Discharge Date: 01/03/21 Primary care physician: Wilbur Haas MD Consults: 12/31/20 13:38 Consult to Occupational Therapy Evaluate & Treat Comment: Physician Instructions: Evaluate and treat Consult to Physical Therapy Evaluate & Treat Comment: Physician Instructions: Evaluate and Treat Discharge provider: Yen Martinez PA-C Summary Hospital Course Discharge Diagnosis: s/p TLIF Hypothyroidism Hyperlipidemia Diverticulosis Diabetes Cardiac arrhythmia AFib Arthritis Hospital Course: Shelby was admitted for a TLIF with Dr. Osei. She consented to procedure. On postop day 3. Patient was ready to discharge to [facility]. Her pain was well controlled with Tylenol, Vistaril, oxycodone. She was slow to mobilize with physical therapy requiring to assist. She was eating and voiding without difficulty or assistance. She did require O2 at night. Incentive spirometer and deep breaths encourage throughout the day and did well on room air. Status at Discharge Functional status at discharge: uses cane/walker Exam Vital Signs (past 8 hours): - 01/03/21 03:42 Temperature 98.6 F Pulse Rate 79 Respiratory Rate 18 Blood Pressure 106/60 Pulse Oximetry 94 Oxygen Delivery Method Nasal Cannula Oxygen Flow Rate 2 Narrative Exam Narrative: Patient lying in bed no acute distress. She is alert and orient x3. Calves are soft, compressible, nontender bilaterally. SCDs on and functioning. Dressing on back is CDI. She is able to actively dorsiflex plantar flex. Sensation intact to light touch throughout bilateral extremities. [facility] Medical History Arthritis Cardiac arrhythmia (~2013) Cataract fragments in eye following surgery Cataracts, bilateral (~1994) Chronic back pain Chronic diarrhea Constipation Diabetes Diarrhea Diverticulosis (~2017) Flesh-eating bacteria (~2000) Grief reaction Hyperlipidemia Hypothyroidism Left shoulder pain (~2020) Restless leg syndrome Spinal stenosis Spondylolisthesis, lumbar region Surgical History Anesthesia Broken collarbone (~2011) Diverticular disease (~2017) History of cholecystectomy History of colonoscopy with polypectomy History of hysterectomy Hx of arthroscopy Hx of LASIK S/P cervical spinal fusion S/P colectomy Family History Father History of heart disease Mother Rheumatoid arthritis Brother History of heart disease Brother Cancer Social History marital status: unknown household members: none Smoking Status: Never smoker alcohol intake: never substance use type: does not use Discharge Plan Discharge Plan Patient Disposition: SNF Transfer to: [facility] Under care of provider: Facility MD Consult as needed: Dental, Hearing, Mental health, Podiatry and Vision Discharge orders & Medications Prescriptions: New acetaminophen 325 mg Tablet 650 mg PO Q6HR PRN (Reason: Pain, Mild (1-3)) Qty: 60 RF: 0 docusate sodium [DOK] 100 mg Capsule 100 mg PO BID Qty: 30 RF: 0 hydroxyzine pamoate 25 mg Capsule 25 mg PO Q6-8H PRN (Reason: Muscle spasms) Qty: 30 RF: 0 oxycodone 5 mg Tablet 5 mg PO Q4HR PRN (Reason: Pain, Moderate (4-6)) Qty: 30 RF: 0 Continued (DME) blood-glucose meter Kit See Rx Instructions .ROUTE .MEDSUPPLY Qty: 1 RF: 0 (DME) FreeStyle Test Strip See Rx Instructions .ROUTE .MEDSUPPLY Qty: 100 RF: 0 (DME) lancets [FreeStyle Lancets] 28 gauge misc See Rx Instructions .ROUTE .MEDSUPPLY Qty: 100 RF: 0 (DME) lancing device Misc See Rx Instructions .ROUTE .MEDSUPPLY Qty: 1 RF: 0 escitalopram oxalate 10 mg tablet 10 mg PO BID RF: 0 cholecalciferol (vitamin D3) 1,000 unit capsule 1,000 unit PO DAILY RF: 0 ferrous gluconate 240 mg (27 mg iron) tablet 240 mg PO DAILY RF: 0 Eliquis 5 mg tablet 5 mg PO BID RF: 0 levothyroxine 100 mcg capsule 100 mcg PO DAILY RF: 0 furosemide 20 mg tablet 20 mg PO DAILY RF: 0 omeprazole magnesium 20 mg capsule,delayed release(DR/EC) 20 mg PO DAILY RF: 0 trazodone 50 mg tablet 100 mg PO BEDTIME RF: 0 loperamide [Anti-Diarrheal (loperamide)] 2 mg capsule 2 mg PO Q4H PRN (Reason: Diarrhea) RF: 0 vitamin E 200 unit capsule 400 unit PO DAILY RF: 0 metformin 500 mg tablet 500 mg PO BID RF: 0 metoprolol succinate 25 mg tablet extended release 24 hr 25 mg PO DAILY RF: 0 Follow up/Referrals: Wilbur Haas MD [Primary Care Provider] - Lynn Osei MD [Physician] - Diet/Activity/Treatments Liquid consistency: Normal/Thin Food texture: Regular Activity: No excessive bending, lifting, or twisting Skin/Wound/Dressing Care Report to your healthcare provider any signs of infection, such as:: chills, fever and increased pain Dressing: leave in place until appointment Special Rehabilitation Services Reason for rehabilitation: Post-operative therapy Rehab type: Physical therapy and Occupational therapy Discharge Data Primary Care Provider: Wilbur Haas
[2021-01-03] MEDS: VITAMIN E 400 UNIT CAPSULE PO (08:43)
[2021-01-03] MEDS: ESCITALOPRAM 10 MG TABLET PO (08:45)
--- NOTE | 2021-01-03 10:33 | PT.IPTN ---
Current Diagnoses Spondylolisthesis, lumbosacral region (12/31/20) Spinal stenosis, lumbar region without neurogenic claudication (12/31/20) Surgery Performed Operation Date: 12/31/20 07:45 Actual Procedures p S1-S2 left hemilaminectomy, L5-S1 TLIF w. posterior instrumentation - Lynn Osei MD Physical Therapy Treatment Note M2 PT-IP Current Condition Start: 12/31/20 14:49 Freq: NEEDED Status: Active Protocol: Document 01/01/21 09:34 AW (Rec: 01/01/21 12:19 AW [id number]) Physical Therapy Current Condition Current Condition Evaluation Date 01/01/21 Treatment Diagnosis s/p L5-S1 TLIF; difficulty in walking Onset Date 12/31/20 Precautions Lumbar Precautions Log Roll,No Twisting,Limit Bending,Lifting Restriction of 10 lbs,Gait Belt above Incisional Area Weight Bearing Status Weight Bearing Status Weight Bear as Tolerated M3 PT-IP Subjective Start: 12/31/20 14:49 Freq: NEEDED Status: Active Protocol: Document 01/03/21 10:04 SP (Rec: 01/03/21 11:33 SP [id number]) Subjective Physical Therapy Visit Type Type Treatment Note Visit Start Time 10:04 Visit Stop Time 10:33 Total Visit Minutes 29 Notes Vitals taken during tx: seated at EOB due to pain/ nausea and minimal productive emesis: BP 173/76 HR 113 94% O2 on RA . seated in chair: BP 144/70 HR 96 with no report dizziness only LB pain 5/10. Notified cost estimating manager and nurse vitals taken. Number of ROADS SUPERINTENDENT Visits 3 Physical Therapy Visit Comments Patient Comments Pt agreeable to working with therapy. Therapy Pain Assessment Pain When Pain Assessed At Rest Pain Present Pain Present Pain Reported Location Back Intensity 5 Scale Used Numeric (0 - 10) Description Acute,Sharp,Spasm,Tightness, With Movement Pain Behaviors Facial Grimacing,Guarding, Moaning,Restlessness,Wincing Pain Management Techniques Re-positioning,Timing of Activity with Medications M4 PT-IP Mobility and Gait Start: 12/31/20 14:49 Freq: NEEDED Status: Active Protocol: Document 01/03/21 10:04 SP (Rec: 01/03/21 11:33 SP [id number]) PT-Bed Mobility Assessment Rolling Type of Rolling Log Rolling,Roll to Right Level of Assist Minimal Assistance,1 Person Assistance Supine to Sit Supine to Sit Moderate Assistance,1 Person Assistance,Bedrails Scooting Scooting to Edge of Bed Minimal Assistance PT-Transfer Assessment Sit to and From Stand Sit to and from Stand Minimal Assistance,1 Person Assistance,Use of Upper Extremities Equipment Transfer Assistive Device Gait Belt,Front Wheeled Walker Orthotic/Prosthetic Devices or Brace: No Transfers Transfer Destination Chair,Toilet Transfer Technique Pt ambulated using FWW Transfer Ability Level of Assist Minimal Assistance,1 Person Assistance Comments Mobility Comments Pt slight incline in bed when arrived. Pt recalled 1/3 spinal precautions, unable recall with cuing, referrred to post-op packet and states remembers wtih hand out. Reviewed LE ROM pre mobiltiy and states does them herself between txs: ankle pump, heel slide x5 each BLE. LR R Min A with cuing for knee bent and upper body/ LE together maintain no twist. R sidelying >sitting Mod A x1 for trunk righting support only required today. Scoot to EOB Min A with cuing for each LE forward movement sequencing with self support UE on bed. Sit>stand Min A x1 with cuin for proper hand placement to stand using FWW. Ambulated to bathroom CGA, cued pivot, back up to toilet fully then self brief mgt, min A for fully positioned, CGA with grab bar self support. Sit>stand Min A using grab bar, FWW. Pt able to complete brief mgt herself today w /1 UE contact support. Pt ambulated using fWW to sink, cued forward postioning and able to stand without WB on sink then walked to door and back to chair, cued reach back and slow descent in to chair CGA- 5% A. Pt was upright in chair with LE elevated with call light and all needs in reach before left . Gait Assessment Gait Gait Assistance Required: Minimum Assistance,1 Person Assist Distance (Feet) 40 Able to Maintain Weight Bearing Status Yes During Gait Assistive Devices Assistive Device Gait Belt,Front Wheeled Walker Orthotic/Prosthetic Devices or Brace: No Gait Deviations General Gait Pattern Antalgic,Decreased Stride Length,Decreased Feet Clearance,Flexed Trunk,Step-to Gait Factors Limiting Gait Function Factors Limiting Gait Function Decreased Activity Tolerance, Decreased Strength,Limited Range of Motion,Pain,Poor Balance Comments Gait Comments Cued body closer to FWW, upright posture, increased stride length and foot clearance, CGA. Stair Climbing Assessment Comments Stair Climbing Comments Not assessed, due to decreased strength, pain. Will need to complete 2 smaller PF steps prior to going home. Pt is unsure if the platform is big enough for FWW/ 4WW. PT-Balance Assessment Sitting Balance and Reactions Static Sitting Balance Ability Normal Dynamic Sitting Balance Ability Good Standing Balance and Reactions Static Standing Balance Ability Good Dynamic Standing Balance Ability Fair Device Used FWW M5 PT-IP Objective Assessments Start: 12/31/20 14:49 Freq: NEEDED Status: Active Protocol: Document 01/01/21 09:34 AW (Rec: 01/01/21 12:19 AW [id number]) Orientation Orientation/Cognition Level of Alertness Lethargic Orientation Name,Day of Week,Place, Situation Language Function Ability No Deficits Noted Safety Awareness Decreased Safety Awareness Comments Pt was lethargic due to pain medication. RN notified. Gross Range of Motion Lower Extremity ROM Assessment Within Functional Limits Strength Lower Extremity Strength Assessment Bilaterally Impaired Hip 4-/5 Knee 4-/5 Ankle 4/5 Sensation Assessment Sensation Gross Sensation WNL Muscle Tone Muscle Tone WNL Yes M6 PT-IP Treatment Start: 12/31/20 14:49 Freq: NEEDED Status: Active Protocol: Document 01/03/21 10:04 SP (Rec: 01/03/21 11:33 SP [id number]) Physical Therapy Treatment Exercises Exercises Ankle Pumps,Heel Slides Education Education Provided Precautions,Weight Bearing Status,Safety M7 PT-IP Assessment and Plan Start: 12/31/20 14:49 Freq: NEEDED Status: Active Protocol: Document 01/03/21 10:04 SP (Rec: 01/03/21 11:33 SP [id number]) PT Summary Assessment and Plan Potential Rehabilitation Potential Good Status of Condition at Evaluation Evolving Summary Impairments Pain,ROM,Strength,Balance,Bed Mobility,Transfers,Gait, Activity Tolerance Progress Towards Goals Progressing Toward Goals,Slow Progress due to Pain,Slow Progress due to Activity Tolerance Assessment Summary Pt requires Min A durign LR, Mod A Rsidely to sit A x1, CG- Min A sit to stand using FWW. Pt improves with mobility with encouragement but states is hard moving with the pain . Pt will need to complete stair mgt before DC home. Pt lives alone and requires physical assist for all mobility with cuing for proper trunk posture, she doesn't have anyone at home to help her. Recommend SNF upon DC at this time to allow for improved increase strength toward functional independence , more education with maintain spinal precautions. Goals Bed Mobility Goal Independent Transfer Goal Independent,Front Wheeled Walker Gait Goal Independent,Front Wheel Walker Gait Distance 150 Other Goals - up/down 2 steps with B rails IND - progress gait to 150 feet with 4WW Days to Meet Goals 8 Frequency of Treatment Frequency Of Treatment Twice a Day Treatment Plan Physical Therapy Treatment Plan Bed Mobility Training,Transfer Training,Gait Training, Therapeutic Exercise,Balance Retraining,Post Op Education, Discharge Planning,Hot or Cold Pack Other Recommendations and Next Treatment review precautions; log roll; Focus bed mobility, gait train with FWW progress w/ 4WW if safe; stairs when able. Precautions Lumbar Precautions Log Roll,No Twisting,Limit Bending,Lifting Restriction of 10 lbs,Gait Belt above Incisional Area Recommendations To Nursing Amount of Assist Needed Standby Assistance,1 Person Assist Discharge Recommendations PT Discharge Recommendations SNF Rehab Other Discharge Recommendations SNF Equipment Needed for Home Before FWW if not safe with 4WW Discharge Transportation Needs at Discharge Private Vehicle,Wheelchair/ Cabulance
[2021-01-03 10:51] LABS: COVID19 -Nasal RAPID Negative (Negative)
[2021-01-03] MEDS: BISACODYL 10 MG SUPP PR (11:11)
--- NOTE | 2021-01-03 12:12 | PC.NURSE ---
Day shift: Report given to Rachel at [facility]. All questions answered.
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
--- NOTE | 2021-01-03 13:23 | CM.DPNOTE ---
DC Note DC order placed for SNF, patient remains aware and agreeable to DCP which is [facility]. IMM provided Faxed completed and signed med list and PASRR to [facility], w/c p/u scheduled for 1230 Updated RINA Fuller who gave report to RINA Ramos at [facility] Plan: DC today to [facility] via w/c JW
== END 2021-01-03 12:42 | DRG 455 ==
PROVIDERS: Physician Assistant Surgical; Admitting Provider Orthopaedic Surgery Orthopaedic Surgery of the Spine; PCP Family Medicine; Referring Provider Family Medicine; Visit Provider Orthopaedic Surgery Orthopaedic Surgery of the Spine
PROC: 0SG30AJ Fusion of Lumbosacral Joint with Interbody Fusion Device, Posterior Approach, Anterior Column, Open Approach (ICD-10-PCS; principal; 2020-12-31 07:45)
DX: M48.061 Spinal stenosis, lumbar region without neurogenic claudication (principal); M43.17 Spondylolisthesis, lumbosacral region; E11.9 Type 2 diabetes mellitus without complications; Z79.01 Long term (current) use of anticoagulants; E03.9 Hypothyroidism, unspecified; E78.5 Hyperlipidemia, unspecified; R10.2 Pelvic and perineal pain; Z20.822 Contact with and (suspected) exposure to COVID-19; M48.07 Spinal stenosis, lumbosacral region; M47.26 Other spondylosis with radiculopathy, lumbar region; G89.18 Other acute postprocedural pain; R09.02 Hypoxemia
CPT/HCPCS: 72100; 76000; 81015; 82962; 87635; 94760; 97116; 97161; 97165; 97530; 97535; C1776; C9803; C9290; J0131; J0690; J1100; J1170; J2405; J2704; J3010

== ENCOUNTER → 2021-03-02 09:36 | Outpatient (CLI) | payer MEDICARE, OTHER, SELFPAY ==
[2020-12-31 06:42] VITALS: BMI 30.1
[2021-03-02 10:35] LABS: Add Manual Diff / Slide Review NO; Basophils Absolute Auto 100 /uL (0-100); Basophils Percent Auto 0.8 % (0-2); Eosinophils Absolute Auto 300 /uL (0-450); Eosinophils Percent Auto 3.6 % (2-4); Hematocrit 42.4 % (36-46); Hemoglobin 14.1 g/dL (12.0-16.0); Lymphocytes Absolute Auto 2500 /uL (1100-4500); Lymphocytes Percent Auto 26.7 % (25-40); Mean Corpuscular HGB Conc 33.1 % (30-36); Mean Corpuscular Hemoglobin 29.7 PG (26-34); Mean Corpuscular Volume 89.6 fL (80-100); Monocytes Absolute Auto 500 /uL (0-900); Monocytes Percent Auto 5.6 % (3-14); Neutrophils Absolute Auto 5800 /uL (1500-7000); Neutrophils Percent Auto 63.3 % (50-75); Platelet Count 321 X10^3/uL (150-400); Red Blood Cell Count 4.73 X10^6/uL (4.0-5.2); Red Cell Distribution Width 13.4 % (11.6-14.8); White Blood Cell Count 9.2 X10^3/uL (4.5-11.0)
[2021-03-02 10:47] LABS: Alanine Aminotransferase 15 IU/L (<35); Albumin Globulin Ratio 1.4 (1.0-2.8); Alkaline Phosphatase 82 U/L (38-126); Aspartate Aminotransferase 19 IU/L (14-36); BUN Creatinine Ratio 25.7 (6-22); Bilirubin Total 0.2 mg/dL (0.2-1.3); Blood Urea Nitrogen 18 mg/dL (7-17); Calcium 9.7 mg/dL (8.4-10.2); Carbon Dioxide 30 mmol/L (22-32); Chloride 103 mmol/L (98-107); Cholesterol 247 mg/dL (140-199); Estimated Glomerular Filt Rate > 60.0 mL/min (>60); Globulin 2.8 g/dL (1.7-4.1); Glucose 122 mg/dL (80-110); HDL Cholesterol 54 mg/dL (40-60); HEMOLYSIS < 15 (0-50); LDL Cholesterol Calculated 151 mg/dL (<100); Potassium 4.6 mmol/L (3.4-5.1); Sodium 139 mmol/L (137-145); Total Protein 6.8 g/dL (6.3-8.2); Triglycerides 208 mg/dL (35-150)
[2021-03-02 10:49] LABS: Hemoglobin A1C% w Est Avg Glu 6.1 % (4.0-6.0)
[2021-03-02 10:58] LABS: Microalbumin Urine Random < 0.6 mg/dL (0-1.6)
== END ==
PROVIDERS: PCP Family Medicine; Referring Provider Internal Medicine; Visit Provider Internal Medicine
DX: I10 Essential (primary) hypertension (principal); E11.9 Type 2 diabetes mellitus without complications; E78.00 Pure hypercholesterolemia, unspecified; I48.0 Paroxysmal atrial fibrillation
CPT/HCPCS: 36415; 80053; 80061; 82043; 82570; 83036; 85025

== ENCOUNTER → 2021-07-15 13:11 | Outpatient (CLI) | payer MEDICARE, OTHER, SELFPAY ==
[2020-12-31 06:42] VITALS: BMI 30.1
--- NOTE | 2021-07-15 | DI.RAD.S_ITS ---
PROCEDURE: FL BARIUM SWALLOW W SPEECH INDICATIONS: Dysphagia, unspecified COMPARISON: None. TECHNIQUE: Examination was conducted in conjunction with speech pathology per standard protocol. In the lateral projection, filming was performed of the patient swallowing. AP projection filming may also be performed with patient swallowing. COMPARISON: FINDINGS: Function: The oral preparatory phase appears normal, with proper containment. The subsequent oral propulsive phase, pharyngeal phase, and esophageal phase of swallowing also appear normal with all proffered substances. Question of trace laryngotracheal penetration. No aspiration. Trace vallecular pooling. Morphology: No cricopharyngeal bar is identified. No cervical esophageal webs. No Zenker's diverticulum. No strictures identified. Additional views of the esophagus in AP were acquired. There is a standing column of contrast within the esophagus. This cleared with subsequent swallows of water. There is suspected diminish esophageal motility. The barium tablet passed through the esophagus rapidly. No strictures identified. IMPRESSION: 1. No aspiration. Question of trace laryngotracheal penetration. Suspect vallecular pooling. Note: The patient reports sensation of sticking in the right neck throughout the exam. 2. Esophageal dysmotility demonstrated by standing column of contrast within the esophagus. Less than expected stripping waves. No obvious stricture. Consider further evaluation with dedicated esophagram. The esophagus could also be further evaluated with endoscopy. Please see separately dictated speech pathologist's report. Dictated by: Ever Leal M.D. on 07/15/2021 at 14:19 Approved by: Ever Leal M.D. on 07/15/2021 at 14:25
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
== END ==
PROVIDERS: PCP Internal Medicine; Referring Provider Internal Medicine; Visit Provider Internal Medicine
DX: R13.10 Dysphagia, unspecified (principal)
CPT/HCPCS: 74230; 92611

== ENCOUNTER → 2021-11-04 13:15 | Outpatient (CLI) | payer MEDICARE, BC, SELFPAY ==
[2020-12-31 06:42] VITALS: BMI 30.1
--- NOTE | 2021-11-04 13:20 | DI.RAD.S_ITS ---
PROCEDURE: XR ABDOMEN MIN 2V INDICATIONS: ALTERED BOWEL FUNCTION TECHNIQUE: 2 views of the abdomen were acquired. COMPARISON: None. FINDINGS: Surgical changes and devices: L4-L5 fusion hardware is present. Cholecystectomy clips are present. Bowel: No pneumoperitoneum. The bowel gas pattern is normal. Soft tissues: No masses; visualized solid organ contours appear normal in size. No suspicious abdominal calcifications. Bones: No suspicious bony abnormalities. IMPRESSION: No acute process. Dictated by: Whitney Callejas M.D. on 11/04/2021 at 15:11 Approved by: Whitney Callejas M.D. on 11/04/2021 at 15:12
== END ==
PROVIDERS: PCP Internal Medicine; Referring Provider Internal Medicine Gastroenterology; Visit Provider Internal Medicine Gastroenterology
DX: K59.00 Constipation, unspecified (principal); R15.9 Full incontinence of feces; R19.7 Diarrhea, unspecified; R19.8 Other specified symptoms and signs involving the digestive system and abdomen
CPT/HCPCS: 74019

== ENCOUNTER → 2022-05-12 11:24 | Outpatient (CLI) | payer MEDICARE, BC, SELFPAY ==
[2020-12-31 06:42] VITALS: BMI 30.1
== END ==
PROVIDERS: PCP Internal Medicine; Referring Provider Internal Medicine; Visit Provider Internal Medicine
DX: Z78.0 Asymptomatic menopausal state (principal); M85.89 Other specified disorders of bone density and structure, multiple sites
CPT/HCPCS: 77080

== ENCOUNTER → 2023-01-15 08:23 | Outpatient (CLI) | payer MEDICARE, BC, SELFPAY ==
[2020-12-31 06:42] VITALS: BMI 30.1
[2023-01-15 10:20] LABS: Add Manual Diff / Slide Review NO; Basophils Absolute Auto 100 /uL (0-100); Eosinophils Absolute Auto 300 /uL (0-450); Eosinophils Percent Auto 3.3 % (2-4); Hematocrit 42.8 % (36-46); Hemoglobin 13.9 g/dL (12.0-16.0); Lymphocytes Absolute Auto 1800 /uL (1100-4500); Lymphocytes Percent Auto 22.3 % (25-40); Mean Corpuscular HGB Conc 32.5 % (30-36); Mean Corpuscular Hemoglobin 29.4 PG (26-34); Mean Corpuscular Volume 90.6 fL (80-100); Monocytes Absolute Auto 500 /uL (0-900); Monocytes Percent Auto 6.6 % (3-14); Neutrophils Absolute Auto 5400 /uL (1500-7000); Neutrophils Percent Auto 66.8 % (50-75); Platelet Count 298 X10^3/uL (150-400); Red Blood Cell Count 4.72 X10^6/uL (4.0-5.2); Red Cell Distribution Width 12.9 % (11.6-14.8)
[2023-01-15 10:27] LABS: Hemoglobin A1C% w Est Avg Glu 6.8 % (4.0-6.0)
[2023-01-15 10:40] LABS: Alanine Aminotransferase 30 IU/L (<35); Albumin 3.9 g/dL (3.5-5.0); Albumin Globulin Ratio 1.3 (1.0-2.8); Alkaline Phosphatase 72 U/L (38-126); Aspartate Aminotransferase 22 IU/L (14-36); BUN Creatinine Ratio 22.8 (6-22); Bilirubin Total 0.4 mg/dL (0.2-1.3); Blood Urea Nitrogen 18 mg/dL (7-17); Carbon Dioxide 33 mmol/L (22-32); Chloride 100 mmol/L (98-107); Cholesterol 215 mg/dL (140-199); Estimated Glomerular Filt Rate > 60 mL/min (>60); Glucose 104 mg/dL (80-110); HDL Cholesterol 40 mg/dL (40-60); HEMOLYSIS < 15 (0-50); LDL Cholesterol Calculated 129 mg/dL (<100); Potassium 4.2 mmol/L (3.4-5.1); Sodium 139 mmol/L (137-145); Total Protein 6.9 g/dL (6.3-8.2); Triglycerides 230 mg/dL (35-150)
[2023-01-15 11:09] LABS: TSH w/ Reflex to FT4 7.59 uIU/mL (0.47-4.68)
[2023-01-15 11:13] LABS: Ferritin 223 ng/mL (11-264)
[2023-01-15 11:40] LABS: Free T4, Direct Thyroxine 1.13 ng/dL (0.78-2.19)
== END ==
PROVIDERS: PCP Family Medicine; Referring Provider Family Medicine; Visit Provider Family Medicine
DX: E11.9 Type 2 diabetes mellitus without complications (principal); I10 Essential (primary) hypertension
CPT/HCPCS: 36415; 80053; 80061; 82728; 83036; 84439; 84443; 85025

== ENCOUNTER → 2023-04-04 14:17 | Outpatient (CLI) | payer MEDICARE, BC, SELFPAY ==
[2020-12-31 06:42] VITALS: BMI 30.1
[2023-04-04 15:04] LABS: Influenza A - CEPHEID Flu A NEGATIVE (NEGATIVE); Influenza B - CEPHEID Flu B NEGATIVE (NEGATIVE); Respiratory Syncytial Virus Negative (Negative)
[2023-04-04 15:32] LABS: COVID-19 CEPHEID 4-PLEX PCR Negative (Negative)
== END ==
PROVIDERS: PCP Family Medicine; Visit Provider Physician Assistant
DX: R05.9 Cough, unspecified (principal)
CPT/HCPCS: 0241U

== ENCOUNTER 2023-04-04 14:18 | Emergency (ER) | payer MEDICARE, BC, SELFPAY ==
[2020-12-31 06:42] VITALS: BMI 30.1
[2023-04-04] VITALS (11 sets, daily range): BP systolic 108–139; BP diastolic 55–65; PULSE 58–67; RESP 16–24; TEMP 36.4; O2SAT 91–97; BMI 26.3
--- NOTE | 2023-04-04 14:29 | DI.RAD.S_ITS ---
PROCEDURE: XR CHEST 2V INDICATIONS: cough, wheezing TECHNIQUE: 2 views of the chest were acquired. COMPARISON: None. FINDINGS: Surgical changes and devices: Lower cervical spine plate and screw hardware Lungs and pleura: Mild left basilar atelectasis and or infiltrate Mediastinum: Mediastinal contours are normal. Heart size is normal. Bones and chest wall: No suspicious bony abnormalities. Soft tissues appear unremarkable. IMPRESSION: Mild left basilar atelectasis and or infiltrate Approved by: Grupo Cruz M.D. on 04/04/2023 at 14:03
--- NOTE | 2023-04-04 14:29 | DI.US.S_ITS ---
PROCEDURE: US PERIPH VENOUS LOW EXTREM LT INDICATIONS: COUGH WHEEZING TECHNIQUE: Real-time imaging, as well as color and pulse Doppler interrogation, were performed of the lower extremity deep veins from the inguinal ligament to the popliteal fossa. COMPARISON: None. FINDINGS: The common femoral, femoral veins are normally compressible, and free of intraluminal thrombus. Color and pulse Doppler demonstrate normal phasic intraluminal flow. There is normal augmentation response to distal compression maneuver. Trace echogenic thrombus noted within the popliteal vein associated with a venous valve IMPRESSION: Trace nonocclusive popliteal thrombus associated with a valve Findings were discussed with the referring physician by the bottler at the time of image acquisition Approved by: Grupo Cruz M.D. on 04/04/2023 at 15:18
--- NOTE | 2023-04-04 14:38 | ED_ITS ---
HPI - URI/Sore Throat General Chief Complaint: Upper Respiratory Symptoms Stated Complaint: cough for 3 days, shortness of breath Time Seen by Provider: 04/04/23 14:21 History of Present Illness HPI Narrative: 78-year-old female nonsmoker with history of hypertension, hyperlipidemia, AFib with history of Watchman procedure presents with 3 days of a harsh cough with occasional sputum production. She is not dizzy nor weak or lightheaded. She does admit to some chest pain though particularly with cough. She denies nausea or vomiting. She denies abdominal pain, dysuria, frequency or urgency. She does have a small amount of swelling behind her left calf and denies any injury. She had been taken off her blood thinners after receiving the Watchman procedure and now is only on Plavix. Her watchman was on March 17. She stopped her Eliquis on Thursday. Related Data Home Medications Medication Instructions Recorded Confirmed apixaban 5 mg tablet (Eliquis) 5 mg PO BID 08/11/19 04/04/23 metoprolol succinate 25 mg 25 mg PO DAILY 11/21/20 04/04/23 tablet,extended release 24 hr atorvastatin 40 mg tablet 40 mg PO DAILY 02/07/22 04/04/23 vitamin E mixed 400 unit tablet unit PO .qd 11/03/22 04/04/23 terbinafine HCl 250 mg tablet 250 mg PO DAILY 02/24/23 04/04/23 Previous Rx's Medication Instructions Recorded blood sugar diagnostic (FreeStyle #100 ea 10/10/19 Test strips) blood-glucose meter #1 ea 10/10/19 diabetic shoes #1 ea 12/05/22 ferrous sulfate 325 mg (65 mg 325 mg PO DAILY #90 tabs 01/09/23 iron) tablet furosemide 20 mg tablet 20 mg PO DAILY #90 tabs 01/09/23 gabapentin 100 mg capsule 100 mg PO BEDTIME #90 caps 01/09/23 oxybutynin chloride 10 mg 10 mg PO DAILY #90 tabs 01/09/23 tablet,extended release 24 hr potassium chloride 10 mEq 10 meq PO DAILY #90 tabs 01/09/23 tablet,extended release cholecalciferol (vitamin D3) 25 1,000 unit PO DAILY #90 caps 01/16/23 mcg (1,000 unit) capsule escitalopram oxalate 20 mg tablet 20 mg PO DAILY #90 tabs 01/16/23 (Lexapro) magnesium oxide 400 mg PO DAILY #90 tabs 01/16/23 omeprazole magnesium 20 mg 20 mg PO DAILY #90 caps 01/16/23 capsule,delayed release trazodone 50 mg tablet 50 - 150 mg PO BEDTIME PRN 01/16/23 insomnia #270 tabs levothyroxine 100 mcg tablet 100 mcg PO DAILY #90 tabs 01/28/23 atorvastatin 80 mg tablet (Lipitor) 80 mg PO BEDTIME cholesterol #90 02/24/23 tabs glipizide 2.5 mg tablet, extended 2.5 mg PO DAILY blood sugars #90 02/24/23 release 24 hr tabs benzonatate 200 mg capsule 200 mg PO BID PRN cough #20 caps 04/04/23 Allergies Allergy/AdvReac Type Severity Reaction Status Date / Time adhesive tape AdvReac Rash Verified 04/04/23 13:54 Patient History Medical History Arthritis Benign essential HTN Cardiac arrhythmia (~2013) Cataract fragments in eye following surgery Cataracts, bilateral (~1994) Chronic back pain Chronic diarrhea Constipation Flesh-eating bacteria (~2000) Grief reaction Hyperlipidemia Hypothyroidism Insomnia Left shoulder pain (~2020) Medicare annual wellness visit, subsequent PTSD (post-traumatic stress disorder) Restless leg syndrome Spinal stenosis Spondylolisthesis, lumbar region Type 2 diabetes mellitus without complication, with no history of insulin use Urinary incontinence, urge Surgical History Anesthesia Broken collarbone (~2011) Diverticular disease (~2017) History of cholecystectomy History of colonoscopy with polypectomy History of hysterectomy Hx of arthroscopy Hx of LASIK S/P cervical spinal fusion S/P colectomy Family History Father History of heart disease Mother Rheumatoid arthritis Brother History of heart disease Hypertension Diabetes mellitus Stroke Brother Cancer Social History marital status: number of children: 4 household members: none Smoking Status: Never smoker alcohol intake: never substance use type: does not use Type(s) of exercise: walking frequency: 1-2 times per week Smoking Status: Never smoker Substance Use Type: does not use Exam Narrative Exam Narrative: GENERAL: [78] year old patient appears stated age. Well-developed patient, in mild distress. Frequent dry, hacking cough HEAD: Atraumatic. Normocephalic. EYES: Pupils equal round and reactive. Extraocular motions intact. No scleral icterus. No injection or drainage. ENT: Nose without bleeding, purulent drainage. Throat without erythema, tonsillar hypertrophy or exudate. Airway patent. NECK: Trachea midline. Non tender CARDIOVASCULAR: Regular rate and rhythm without murmurs, gallops, or rubs. RESPIRATORY: Clear to auscultation. Breath sounds equal bilaterally. No wheezes, rales, or rhonchi. GASTROINTESTINAL: Abdomen soft, non-tender, nondistended. EXTREMITIES: No edema or joint tenderness. BACK: Nontender without deformity or crepitance. No flank tenderness. NEURO: AOx3. SKIN: No rash or erythema of visible areas Initial Vital Signs Initial Vital Signs: Vital Signs Temperature 97.6 F 04/04/23 14:22 Pulse Rate 60 04/04/23 14:22 Respiratory Rate 16 04/04/23 14:22 Blood Pressure 139/65 04/04/23 14:22 Pulse Oximetry 96 04/04/23 14:22 Oxygen Delivery Method Room Air 04/04/23 14:22 Course Orders Ordered: ED Orders 04/04/23 14:29 US periph venous low extrem lt Stat XR chest 2V Stat 04/04/23 14:31 Respiratory Panel (Film Array) Stat 04/04/23 15:07 CT angio chest PE protocol Stat 04/04/23 15:22 Complete Blood Count AUTO DIFF Stat Comprehensive Metabolic Panel Stat Lipase Stat Magnesium Stat NT-proBNP (BNP-Adult 18+) Stat PTT Partial Thromboplastin Ryley Stat Prothrombin Time INR Stat Troponin & CK Cardiac Panel Stat Discontinued Medications Albuterol (Albuterol Hfa Prepack) 1 box MISC SEEINSTR ONE Stop: 04/04/23 14:32 Last Admin: 04/04/23 15:04 Dose: 1 box Documented By: JOLYNN Albuterol/Ipratropium (Albuterol/Ipratropium 3 Ml Ampul) 3 ml INH NOW ONE Stop: 04/04/23 14:31 Last Admin: 04/04/23 15:03 Dose: 3 ml Documented By: JOLYNN Albuterol/Ipratropium (Albuterol/Ipratropium 3 Ml Ampul) 3 ml INH NOW ONE Stop: 04/04/23 14:32 Last Admin: 04/04/23 15:04 Dose: Not Given Documented By: JOLYNN Vital Signs Vital signs: Vital Signs - 8 hr 04/04/23 14:22 04/04/23 14:49 04/04/23 15:40 Temperature 97.6 F Pulse Rate 60 67 65 Respiratory Rate 16 18 Blood Pressure 139/65 Pulse Oximetry 96 97 95 Oxygen Delivery Method Room Air Room Air 04/04/23 15:41 04/04/23 15:41 04/04/23 15:45 Temperature Pulse Rate 63 63 Respiratory Rate Blood Pressure 132/62 Pulse Oximetry 95 95 Oxygen Delivery Method 04/04/23 16:00 04/04/23 16:00 04/04/23 16:20 Temperature Pulse Rate 59 L 65 Respiratory Rate 24 23 Blood Pressure 108/55 L Pulse Oximetry 91 91 Oxygen Delivery Method 04/04/23 16:22 04/04/23 16:22 04/04/23 16:30 Temperature Pulse Rate 61 Respiratory Rate 21 Blood Pressure 126/60 113/58 L Pulse Oximetry 95 Oxygen Delivery Method 04/04/23 16:30 04/04/23 16:45 04/04/23 17:00 Temperature Pulse Rate 59 L 60 Respiratory Rate 24 21 Blood Pressure 117/59 L Pulse Oximetry 93 94 Oxygen Delivery Method 04/04/23 17:00 Temperature Pulse Rate 58 L Respiratory Rate 24 Blood Pressure Pulse Oximetry 94 Oxygen Delivery Method MDM - URI/Sore Throat Lab Data 04/04/23 15:22 04/04/23 15:22 Labs: Lab Results 04/04/23 04/04/23 04/04/23 Range/Units 14:31 15:22 15:22 WBC 7.8 (4.5-11.0) X10^3/uL RBC 4.73 (4.0-5.2) X10^6/uL Hgb 14.1 (12.0-16.0) g/dL Hct 42.4 (36-46) % MCV 89.6 (80-100) fL MCH 29.7 (26-34) PG MCHC 33.2 (30-36) % RDW 13.0 (11.6-14.8) % Plt Count 266 (150-400) X10^3/uL Neut % (Auto) 75.7 H (50-75) % Lymph % (Auto) 13.5 L (25-40) % [place] % (Auto) 7.8 (3-14) % Eos % (Auto) 2.3 (2-4) % Baso % (Auto) 0.7 (0-2) % Neut # (Auto) 5900 (9214-3669) /uL Lymph # (Auto) 1000 L (9576-4913) /uL [place] # (Auto) 600 (0-900) /uL Eos # (Auto) 200 (0-450) /uL Baso # (Auto) 100 (0-100) /uL PT 22.9 H (10.1-12.7) SECONDS INR 2.0 H (0.9-1.3) APTT 36 (26-36) SECONDS Sodium (137-145) mmol/L Potassium (3.4-5.1) mmol/L Chloride (98-107) mmol/L Carbon Dioxide (22-32) mmol/L BUN (7-17) mg/dL Creatinine (0.52-1.04) mg/dL Estimated GFR (>60) mL/min BUN/Creatinine Ratio (6-22) Glucose (80-110) mg/dL Calcium (8.4-10.2) mg/dL Magnesium (1.6-2.3) mg/dL Total Bilirubin (0.2-1.3) mg/dL AST (14-36) IU/L ALT (<35) IU/L Alkaline Phosphatase (38-126) U/L Total Creatine Kinase (30-135) U/L CK-MB (CK-2) CK-MB (CK-2) Rel Index Troponin I (0.01-0.034) ng/mL NT-Pro-B Natriuret Pep (<450) pg/mL Total Protein (6.3-8.2) g/dL Albumin (3.5-5.0) g/dL Globulin (1.7-4.1) g/dL Albumin/Globulin Ratio (1.0-2.8) Lipase (23-300) U/L Chlamy pneumoniae PCR Not detected (Not Detect) Adenovirus (PCR) Not detected (Not Detect) B. pertussis DNA (PCR) Not detected (Not Detecte) B.parapertussis DNA PCR Not detected (Not Detecte) Coronavirus OC43 (PCR) Not detected (Not Detect) Coronavirus HKU1 (PCR) Not detected (Not Detect) Coronavirus 229E (PCR) Not detected (Not Detect) SARS-CoV-2 (PCR) Not detected (Not Detecte) Coronavirus NL63 (PCR) Not detected (Not Detect) Human Metapneumovir PCR Detected H (Not Detect) Influenza Type A (PCR) Not detected (Not Detect) Influenza Type B (PCR) Not detected (Not Detect) M. pneumoniae (PCR) Not detected (Not Detect) Parainfluenza 1 (PCR) Not detected (Not Detect) Parainfluenza 2 (PCR) Not detected (Not Detect) Parainfluenza 3 (PCR) Not detected (Not Detect) Parainfluenza 4 (PCR) Not detected (Not Detect) RSV (PCR) Not detected (Not Detect) Entero/Rhino (PCR) Not detected (Not Detect) 04/04/23 Range/Units 15:22 WBC (4.5-11.0) X10^3/uL RBC (4.0-5.2) X10^6/uL Hgb (12.0-16.0) g/dL Hct (36-46) % MCV (80-100) fL MCH (26-34) PG MCHC (30-36) % RDW (11.6-14.8) % Plt Count (150-400) X10^3/uL Neut % (Auto) (50-75) % Lymph % (Auto) (25-40) % [place] % (Auto) (3-14) % Eos % (Auto) (2-4) % Baso % (Auto) (0-2) % Neut # (Auto) (0775-8540) /uL Lymph # (Auto) (8190-0437) /uL [place] # (Auto) (0-900) /uL Eos # (Auto) (0-450) /uL Baso # (Auto) (0-100) /uL PT (10.1-12.7) SECONDS INR (0.9-1.3) APTT (26-36) SECONDS Sodium 136 L (137-145) mmol/L Potassium 3.7 (3.4-5.1) mmol/L Chloride 99 (98-107) mmol/L Carbon Dioxide 31 (22-32) mmol/L BUN 12 (7-17) mg/dL Creatinine 0.65 (0.52-1.04) mg/dL Estimated GFR > 60 (>60) mL/min BUN/Creatinine Ratio 18.5 (6-22) Glucose 124 H (80-110) mg/dL Calcium 8.6 (8.4-10.2) mg/dL Magnesium 2.2 (1.6-2.3) mg/dL Total Bilirubin 0.3 (0.2-1.3) mg/dL AST 32 (14-36) IU/L ALT 52 H (<35) IU/L Alkaline Phosphatase 82 (38-126) U/L Total Creatine Kinase 44 (30-135) U/L CK-MB (CK-2) TNP CK-MB (CK-2) Rel Index TNP Troponin I < 0.012 (0.01-0.034) ng/mL NT-Pro-B Natriuret Pep 532 H (<450) pg/mL Total Protein 7.2 (6.3-8.2) g/dL Albumin 4.1 (3.5-5.0) g/dL Globulin 3.1 (1.7-4.1) g/dL Albumin/Globulin Ratio 1.3 (1.0-2.8) Lipase 14 L (23-300) U/L Chlamy pneumoniae PCR (Not Detect) Adenovirus (PCR) (Not Detect) B. pertussis DNA (PCR) (Not Detecte) B.parapertussis DNA PCR (Not Detecte) Coronavirus OC43 (PCR) (Not Detect) Coronavirus HKU1 (PCR) (Not Detect) Coronavirus 229E (PCR) (Not Detect) SARS-CoV-2 (PCR) (Not Detecte) Coronavirus NL63 (PCR) (Not Detect) Human Metapneumovir PCR (Not Detect) Influenza Type A (PCR) (Not Detect) Influenza Type B (PCR) (Not Detect) M. pneumoniae (PCR) (Not Detect) Parainfluenza 1 (PCR) (Not Detect) Parainfluenza 2 (PCR) (Not Detect) Parainfluenza 3 (PCR) (Not Detect) Parainfluenza 4 (PCR) (Not Detect) RSV (PCR) (Not Detect) Entero/Rhino (PCR) (Not Detect) Urine Dip Bedside Urine Glucose 1000 mg/dl Bedside Urine Bilirubin - Negative Bedside Urine Ketone - Negative Urine Specific [place] 1.015 Bedside Urine Occult Blood +/- Bedside Urine pH 6.5 Bedside Urine Leukocytes +/- 15 Esterase MDM Narrative Medical decision making narrative: 78] year old patient presents with cough Multiple etiologies for patient's symptoms considered including, but not limited to: [Viral pneumonia versus pneumonia versus pulmonary embolism versus other] Prior Charts reviewed in our EMR Primary Historian: patient Labs reviewed and interpreted by myself: Respiratory panel positive for human metapneumovirus, no leukocytosis or left shift, no significant electrolyte abnormality or problems with renal function, troponin negative Imaging reviewed: CTA of chest without evidence of PE or aortic aneurysm, mild bibasilar bronchial wall thickening. Left lower extremity DVT study demonstrates trace nonocclusive popliteal thrombus Consultations: Call to [facility] (Ric). After our discussion of clinical course he recommends patient stop Plavix and resume Eliquis at previous dosing and follow-up with her primary care team Patient's symptoms improved over duration of stay with above-stated therapies. Findings and discharge diagnosis discussed with patient/family followed by verbalization of understanding Return precautions discussed with patient/family whom verbalize understanding of diagnosis and plan Discharge Plan Departure Patient Disposition: Home Clinical Impression: Acute deep vein thrombosis (DVT) of left lower extremity, Acute bronchitis due to human metapneumovirus Instructions: Deep Vein Thrombosis, Human Metapneumovirus Infection Activity Restrictions/Additional Instructions: *You have been diagnosed with [viral pneumonia due to human metapneumovirus and a small left leg DVT] *What to do: *Please stop the Plavix and resumed taking your Eliquis as previously prescribed at 5 mg by mouth twice daily. Otherwise continue your medications as directed [x ] New medication prescriptions sent to your pharmacy: [[facility] ] [ ] New medication written as a paper prescription [ ] No new medications given *Please follow up with your primary care provider in 2-3 days, call for an appointment. Let them know you were seen in the Emergency Department and that we ask that you be seen in follow up. We will electronically transmit a record of today's note if your PCP is in our system *If you do not have a primary care provider please contact the [facility] Resource line at [phone]. They will ask some questions about your medical history and help get you set up with a doctor in the community. *Return to Emergency Department if you should have any new, worsening or concerning symptoms, such as [fever greater than 101 F, shaking chills, worsening pain, persistent vomiting or other bothersome symptoms] Prescriptions: New benzonatate 200 mg capsule 200 mg PO BID PRN (Reason: cough) Qty: 20 0RF No Action (DME) blood-glucose meter Kit See Rx Instructions .ROUTE .MEDSUPPLY Qty: 1 0RF Rx Instructions: Test blood sugar Daily BID (DME) FreeStyle Test Strip See Rx Instructions .ROUTE .MEDSUPPLY Qty: 100 0RF Rx Instructions: Use with machine to test blood glucose Daily BID cholecalciferol (vitamin D3) 25 mcg (1,000 unit) capsule 1,000 unit PO DAILY Qty: 90 3RF escitalopram oxalate [Lexapro] 20 mg tablet 20 mg PO DAILY Qty: 90 3RF magnesium oxide 400 mg magnesium tablet 400 mg PO DAILY Qty: 90 3RF omeprazole magnesium 20 mg capsule,delayed release(DR/EC) 20 mg PO DAILY Qty: 90 3RF trazodone 50 mg tablet 50 - 150 mg PO BEDTIME PRN (Reason: insomnia) Qty: 270 3RF levothyroxine 100 mcg tablet 100 mcg PO DAILY Qty: 90 0RF Eliquis 5 mg tablet 5 mg PO BID terbinafine HCl 250 mg tablet 250 mg PO DAILY glipizide 2.5 mg tablet extended release 24hr 2.5 mg PO DAILY Qty: 90 3RF atorvastatin [Lipitor] 80 mg tablet 80 mg PO BEDTIME Qty: 90 3RF vitamin E mixed 400 unit tablet PO .qd (DME) diabetic shoes See Rx Instructions .Route .MEDSUPPLY Qty: 1 0RF Rx Instructions: As directed or foot swelling, onychomycosis, thickened nails ferrous sulfate 325 mg (65 mg iron) tablet 325 mg PO DAILY Qty: 90 3RF furosemide 20 mg tablet 20 mg PO DAILY Qty: 90 3RF oxybutynin chloride 10 mg tablet extended release 24hr 10 mg PO DAILY Qty: 90 3RF potassium chloride 10 mEq tablet extended release 10 meq PO DAILY Qty: 90 3RF Rx Instructions: while on lasix gabapentin 100 mg capsule 100 mg PO BEDTIME Qty: 90 3RF metoprolol succinate 25 mg tablet extended release 24 hr 25 mg PO DAILY Rx Instructions: TAKE 1 TABLET BY MOUTH DAILY atorvastatin 40 mg tablet 40 mg PO DAILY Referrals: Alistair Dyson DO [Primary Care Provider] - Stand Alone Forms: Patient Portal/API
[2023-04-04] MEDS: ALBUTEROL/IPRATROPIUM 3 ML AMPUL INH (15:03)
[2023-04-04] MEDS: ALBUTEROL HFA PREPACK 1 BOX MISC (15:04)
--- NOTE | 2023-04-04 15:07 | DI.CT.S_ITS ---
PROCEDURE: CT ANGIO CHEST PE PROTOCOL INDICATIONS: CP, SOB, hypoxia, newly discovered DVT TECHNIQUE: After the administration of intravenous contrast, 2 mm thick sections acquired from the pulmonary apices to the posterior costophrenic angles. 3-dimensional maximum intensity projection (MIP) coronal and sagittal reformats were then acquired through the thorax. For radiation dose reduction, the following was used: automated exposure control, adjustment of mA and/or kV according to patient size. COMPARISON: None. FINDINGS: Image quality: Excellent. Pulmonary arteries: Pulmonary arteries are normal in size, and demonstrate no intraluminal filling defects to suggest central pulmonary embolism. Lungs and pleura: Bibasilar airway wall thickening associated with scattered atelectasis and or infiltrate. Mediastinum: Heart size is normal, without pericardial effusion. Left atrial appendage occlusion device. Scattered nonenlarged mediastinal and bilateral axillary lymph nodes. No mediastinal or hilar adenopathy. Thoracic aorta is normal in caliber and enhancement. Esophagus is normal in caliber, without hiatal hernia. Bones and chest wall: No suspicious bony lesions. Ribs and thoracic spine appear intact throughout. Thyroid gland unremarkable. No axillary or supraclavicular adenopathy. Abdomen: Visualized upper abdominal solid organs appear normal in the early arterial phase of enhancement. Spleen is slightly enlarged at 13.3 cm. cholecystectomy. IMPRESSION: No evidence of pulmonary embolism or aortic aneurysm. Bibasilar bronchial wall thickening with atelectasis and or infiltrate may reflect bronchitis. Mild splenomegaly, 13.3 cm Approved by: Grupo Cruz M.D. on 04/04/2023 at 15:41
[2023-04-04 15:29] LABS: Adenovirus Not Detected (Not Detect); B. parapertussis Not Detected (Not Detecte); Bordetella pertussis Not Detected (Not Detecte); Chlamydophila pneumoniae Not Detected (Not Detect); Coronavirus 229E Not Detected (Not Detect); Coronavirus HKU1 Not Detected (Not Detect); Coronavirus NL 63 Not Detected (Not Detect); Coronavirus OC43 Not Detected (Not Detect); Human Metapneumovirus Detected (Not Detect); Human Rhinovirus/Enterovirus Not Detected (Not Detect); Influenza A Not Detected (Not Detect); Influenza B Not Detected (Not Detect); Mycoplasma pneumoniae Not Detected (Not Detect); Parainfluenza Virus 1 Not Detected (Not Detect); Parainfluenza Virus 2 Not Detected (Not Detect); Parainfluenza Virus 3 Not Detected (Not Detect); Parainfluenza Virus 4 Not Detected (Not Detect); Respiratory Syncytial Virus Not Detected (Not Detect); SARS- CoV-2 Not Detected (Not Detecte)
[2023-04-04 15:38] LABS: Prothrombin Time 22.9 SECONDS (10.1-12.7)
[2023-04-04 15:41] LABS: PTT Partial Thromboplastin Tim 36 SECONDS (26-36)
[2023-04-04 15:44] LABS: Add Manual Diff / Slide Review NO; Basophils Absolute Auto 100 /uL (0-100); Basophils Percent Auto 0.7 % (0-2); Eosinophils Absolute Auto 200 /uL (0-450); Eosinophils Percent Auto 2.3 % (2-4); Hematocrit 42.4 % (36-46); Hemoglobin 14.1 g/dL (12.0-16.0); Lymphocytes Absolute Auto 1000 /uL (1100-4500); Lymphocytes Percent Auto 13.5 % (25-40); Mean Corpuscular HGB Conc 33.2 % (30-36); Mean Corpuscular Hemoglobin 29.7 PG (26-34); Mean Corpuscular Volume 89.6 fL (80-100); Monocytes Absolute Auto 600 /uL (0-900); Monocytes Percent Auto 7.8 % (3-14); Neutrophils Absolute Auto 5900 /uL (1500-7000); Neutrophils Percent Auto 75.7 % (50-75); Platelet Count 266 X10^3/uL (150-400); Red Blood Cell Count 4.73 X10^6/uL (4.0-5.2); White Blood Cell Count 7.8 X10^3/uL (4.5-11.0)
[2023-04-04 15:45] LABS: Alanine Aminotransferase 52 IU/L (<35); Albumin 4.1 g/dL (3.5-5.0); Albumin Globulin Ratio 1.3 (1.0-2.8); Alkaline Phosphatase 82 U/L (38-126); Aspartate Aminotransferase 32 IU/L (14-36); BUN Creatinine Ratio 18.5 (6-22); Bilirubin Total 0.3 mg/dL (0.2-1.3); Blood Urea Nitrogen 12 mg/dL (7-17); Calcium 8.6 mg/dL (8.4-10.2); Carbon Dioxide 31 mmol/L (22-32); Chloride 99 mmol/L (98-107); Creatine Kinase 44 U/L (30-135); Estimated Glomerular Filt Rate > 60 mL/min (>60); Globulin 3.1 g/dL (1.7-4.1); Glucose 124 mg/dL (80-110); HEMOLYSIS 15 (0-50); Lipase 14 U/L (23-300); Magnesium 2.2 mg/dL (1.6-2.3); Potassium 3.7 mmol/L (3.4-5.1); Sodium 136 mmol/L (137-145); Total Protein 7.2 g/dL (6.3-8.2)
[2023-04-04 15:57] LABS: NT-proBNP (BNP-Adult 18+) 532 pg/mL (<450); Troponin I < 0.012 ng/mL (0.01-0.034)
== END 2023-04-04 17:26 | disposition home or self-care (01) ==
PROVIDERS: Emergency Provider Emergency Medicine; PCP Family Medicine
DX: I82.432 Acute embolism and thrombosis of left popliteal vein (principal); J20.8 Acute bronchitis due to other specified organisms; B97.81 Human metapneumovirus as the cause of diseases classified elsewhere; R05.9 Cough, unspecified; R07.9 Chest pain, unspecified
CPT/HCPCS: 0241U; 36415; 71046; 71275; 80053; 81003; 82550; 83690; 83735; 83880; 84484; 85025; 85610; 85730; 87633; 93005; 93010; 93971; 94640; 99284; Q9967

== ENCOUNTER 2023-04-08 13:07 | Emergency (ER) | payer MEDICARE, BC, SELFPAY ==
[2020-12-31 06:42] VITALS: BMI 30.1
[2023-04-08 13:07] VITALS: BP 107/59; PULSE 63; RESP 15; TEMP 36.4; O2SAT 94; BMI 30.3
[2023-04-08 16:02] VITALS: BP 129/77; PULSE 65; RESP 16; O2SAT 96
--- NOTE | 2023-04-08 16:19 | ED.EXTPRO ---
HPI - Extremity Problem <Miriam Mancia RN PRACTITIONER - Last Filed: 04/08/23 16:32> General Chief complaint: Extremity Problem,Nontraumatic Stated complaint: sent by DR shirley clot is growing Time Seen by Provider: 04/08/23 16:02 Source: patient Mode of arrival: Ambulatory History of Present Illness HPI Narrative: This is a 78-year-old female presents to the emergency department after she was recently diagnosed with a popliteal DVT in her left lower extremity following heart surgery. She also was diagnosed with bronchitis secondary to human metapneumovirus. She is complaining of edema to her left lower extremity without tenderness, redness, fever chills, or increased pain. States that she does not know why the edema is getting bigger. Her primary care provider is Dr. Poe, states that she was recommended to come to the emergency department for evaluation. She denies shortness of breath, chest pain, weakness or other new symptom.. Related Data Home Medications Medication Instructions Recorded Confirmed apixaban 5 mg tablet (Eliquis) 5 mg PO BID 08/11/19 04/07/23 metoprolol succinate 25 mg 25 mg PO DAILY 11/21/20 04/07/23 tablet,extended release 24 hr atorvastatin 40 mg tablet 40 mg PO DAILY 02/07/22 04/07/23 vitamin E mixed 400 unit tablet unit PO .qd 11/03/22 04/07/23 terbinafine HCl 250 mg tablet 250 mg PO DAILY 02/24/23 04/07/23 Previous Rx's Medication Instructions Recorded blood sugar diagnostic (FreeStyle #100 ea 10/10/19 Test strips) blood-glucose meter #1 ea 10/10/19 diabetic shoes #1 ea 12/05/22 ferrous sulfate 325 mg (65 mg 325 mg PO DAILY #90 tabs 01/09/23 iron) tablet furosemide 20 mg tablet 20 mg PO DAILY #90 tabs 01/09/23 gabapentin 100 mg capsule 100 mg PO BEDTIME #90 caps 01/09/23 oxybutynin chloride 10 mg 10 mg PO DAILY #90 tabs 01/09/23 tablet,extended release 24 hr potassium chloride 10 mEq 10 meq PO DAILY #90 tabs 01/09/23 tablet,extended release cholecalciferol (vitamin D3) 25 1,000 unit PO DAILY #90 caps 01/16/23 mcg (1,000 unit) capsule escitalopram oxalate 20 mg tablet 20 mg PO DAILY #90 tabs 01/16/23 (Lexapro) magnesium oxide 400 mg PO DAILY #90 tabs 01/16/23 omeprazole magnesium 20 mg 20 mg PO DAILY #90 caps 01/16/23 capsule,delayed release trazodone 50 mg tablet 50 - 150 mg PO BEDTIME PRN 01/16/23 insomnia #270 tabs levothyroxine 100 mcg tablet 100 mcg PO DAILY #90 tabs 01/28/23 atorvastatin 80 mg tablet (Lipitor) 80 mg PO BEDTIME cholesterol #90 02/24/23 tabs glipizide 2.5 mg tablet, extended 2.5 mg PO DAILY blood sugars #90 02/24/23 release 24 hr tabs benzonatate 200 mg capsule 200 mg PO BID PRN cough #20 caps 04/04/23 Allergies Allergy/AdvReac Type Severity Reaction Status Date / Time adhesive tape AdvReac Rash Verified 04/08/23 13:09 Review of Systems <UMER Melton - Last Filed: 04/08/23 16:32> Review of Systems ROS Unobtainable: All systems reviewed & are unremarkable except as noted in HPI and below Patient History <UMER Melton - Last Filed: 04/08/23 16:32> Medical History Arthritis Benign essential HTN Cardiac arrhythmia (~2013) Cataract fragments in eye following surgery Cataracts, bilateral (~1994) Chronic back pain Chronic diarrhea Constipation Flesh-eating bacteria (~2000) Grief reaction Hyperlipidemia Hypothyroidism Insomnia Left shoulder pain (~2020) Medicare annual wellness visit, subsequent PTSD (post-traumatic stress disorder) Restless leg syndrome Spinal stenosis Spondylolisthesis, lumbar region Type 2 diabetes mellitus without complication, with no history of insulin use Urinary incontinence, urge Surgical History Anesthesia Broken collarbone (~2011) Diverticular disease (~2017) History of cholecystectomy History of colonoscopy with polypectomy History of hysterectomy Hx of arthroscopy Hx of LASIK S/P cervical spinal fusion S/P colectomy Family History Father History of heart disease Mother Rheumatoid arthritis Brother History of heart disease Hypertension Diabetes mellitus Stroke Brother Cancer Social History marital status: number of children: 4 household members: none Smoking Status: Never smoker alcohol intake: never substance use type: does not use Type(s) of exercise: walking frequency: 1-2 times per week Smoking Status: Never smoker Substance Use Type: does not use Exam <UMER Melton - Last Filed: 04/08/23 16:32> Narrative Exam Narrative: Left lower extremity with dependent edema, no circumferential edema, no tenderness to palpation, no erythema, no lower extremity wound, range of motion of lower extremities fully intact. PT and DP pulses are 2+, calf is soft to palpation Initial Vital Signs Initial Vital Signs: Vital Signs Temperature 97.5 F L 04/08/23 13:07 Pulse Rate 63 04/08/23 13:07 Respiratory Rate 15 04/08/23 13:07 Blood Pressure 107/59 L 04/08/23 13:07 Pulse Oximetry 94 04/08/23 13:07 Oxygen Delivery Method Room Air 04/08/23 13:07 <Josh Gaviria MD - Last Filed: 04/13/23 08:41> Initial Vital Signs Initial Vital Signs: Vital Signs Temperature 97.5 F L 04/08/23 13:07 Pulse Rate 63 04/08/23 13:07 Respiratory Rate 15 04/08/23 13:07 Blood Pressure 107/59 L 04/08/23 13:07 Pulse Oximetry 94 04/08/23 13:07 Oxygen Delivery Method Room Air 04/08/23 13:07 Course <UMER Melton - Last Filed: 04/08/23 16:32> Vital Signs Vital signs: Vital Signs - 8 hr 04/08/23 13:07 04/08/23 16:02 Temperature 97.5 F L Pulse Rate 63 65 Respiratory Rate 15 16 Blood Pressure 107/59 L 129/77 Pulse Oximetry 94 96 Oxygen Delivery Method Room Air Room Air <Josh Gaviria MD - Last Filed: 04/13/23 08:41> Vital Signs Vital signs: Vital Signs - 8 hr 04/08/23 13:07 04/08/23 16:02 Temperature 97.5 F L Pulse Rate 63 65 Respiratory Rate 15 16 Blood Pressure 107/59 L 129/77 Pulse Oximetry 94 96 Oxygen Delivery Method Room Air Room Air MDM - Extremity (Nontraumatic) <Miriam Mancia [facility] - Last Filed: 04/08/23 16:32> [facility] Narrative Medical decision making narrative: Chief Complaint: Swelling to left lower leg Primary historian: Patient Multiple etiologies for patient's complaint considered including, but not limited to: Thrombophlebitis, cellulitis, edema secondary to DVT, compartment syndrome I have independently reviewed the patient's vital signs and nursing notes as well as prior records if available. My interpretation of imaging: Vascular ultrasound from 04/04/2023 shows a popliteal thrombus associated with a venous valve. No evidence of infection, nontender to exam, lower extremities soft to palpation, no motor or sensory deficits. I presume this is most likely dependent edema secondary to DVT and patient has been upright and working hard at her house. Her lower extremity was wrapped in Pankaj bandage for compression, instructed her to elevate frequently, use compressive stockings or Pankaj bandage to prevent accumulation of fluid into follow-up with her PCP. Social considerations that may affect disposition: none Questions are addressed and there is agreement with the plan and for follow-up. I consulted with the ED attending physician Dr. Gaviria as needed for higher level of care considerations and they were available for discussion and recommendations regarding plan of care and diagnostic testing. Patient is appropriate for outpatient management. Discharge Plan Departure Patient Disposition: Home Clinical Impression: Leg edema, left, Acute deep vein thrombosis (DVT) of popliteal vein, Anticoagulated Instructions: How to Use an Elastic Bandage -- Edema, DI for Edema Due to Venous Stasis, DI for Dependent Edema Activity Restrictions/Additional Instructions: *You have been diagnosed with edema in your lower leg related to the blood clot in the vein. Please avoid extra walking around, elevate your leg frequently, use compression stockings or an Pankaj bandage to help with the edema, try to keep your leg in a straight position and elevated so that it drains well and it will gradually start to get better. If you develop a fever or chills or tenderness in a certain area, please come back in for another evaluation. Thank you for your patience today sorry it was a long time. *What to do: *Please continue to take your regular medications as directed. [ ] New medication prescriptions sent to your pharmacy: [ ] [ ] New medication written as a paper prescription [x ] No new medications given *Please call and schedule follow up with your primary care provider in 2-3 days, at least for an update. Let them know you were seen in the Emergency Department for the above problem. We will electronically transmit a record of today's note if your PCP or specialist is in our system. *If you do not have a primary care provider please contact [phone] to establish care with one of the [facility] primary care providers. *Return to the Emergency Department for worsening symptoms, inability to keep liquids down, fever greater than 101F, chills, or other concerning symptom. Prescriptions: No Action (DME) blood-glucose meter Kit See Rx Instructions .ROUTE .MEDSUPPLY Qty: 1 0RF Rx Instructions: Test blood sugar Daily BID (DME) FreeStyle Test Strip See Rx Instructions .ROUTE .MEDSUPPLY Qty: 100 0RF Rx Instructions: Use with machine to test blood glucose Daily BID cholecalciferol (vitamin D3) 25 mcg (1,000 unit) capsule 1,000 unit PO DAILY Qty: 90 3RF escitalopram oxalate [Lexapro] 20 mg tablet 20 mg PO DAILY Qty: 90 3RF magnesium oxide 400 mg magnesium tablet 400 mg PO DAILY Qty: 90 3RF omeprazole magnesium 20 mg capsule,delayed release(DR/EC) 20 mg PO DAILY Qty: 90 3RF trazodone 50 mg tablet 50 - 150 mg PO BEDTIME PRN (Reason: insomnia) Qty: 270 3RF levothyroxine 100 mcg tablet 100 mcg PO DAILY Qty: 90 0RF Eliquis 5 mg tablet 5 mg PO BID terbinafine HCl 250 mg tablet 250 mg PO DAILY glipizide 2.5 mg tablet extended release 24hr 2.5 mg PO DAILY Qty: 90 3RF atorvastatin [Lipitor] 80 mg tablet 80 mg PO BEDTIME Qty: 90 3RF vitamin E mixed 400 unit tablet PO .qd (DME) diabetic shoes See Rx Instructions .Route .MEDSUPPLY Qty: 1 0RF Rx Instructions: As directed or foot swelling, onychomycosis, thickened nails ferrous sulfate 325 mg (65 mg iron) tablet 325 mg PO DAILY Qty: 90 3RF furosemide 20 mg tablet 20 mg PO DAILY Qty: 90 3RF oxybutynin chloride 10 mg tablet extended release 24hr 10 mg PO DAILY Qty: 90 3RF potassium chloride 10 mEq tablet extended release 10 meq PO DAILY Qty: 90 3RF Rx Instructions: while on lasix gabapentin 100 mg capsule 100 mg PO BEDTIME Qty: 90 3RF metoprolol succinate 25 mg tablet extended release 24 hr 25 mg PO DAILY Rx Instructions: TAKE 1 TABLET BY MOUTH DAILY benzonatate 200 mg capsule 200 mg PO BID PRN (Reason: cough) Qty: 20 0RF atorvastatin 40 mg tablet 40 mg PO DAILY Referrals: Nu Poe MD [Primary Care Provider] - Stand Alone Forms: Patient Portal/API <Josh Gaviria MD - Last Filed: 04/13/23 08:41> Cosign ED Attending Cosignature Attestation: I was immediately available in the department for consultation. ?This documentation has been reviewed and I agree with assessment and plan. Supervised by Josh Gaviria MD
== END 2023-04-08 16:34 | disposition home or self-care (01) ==
PROVIDERS: Emergency Provider Nurse Practitioner Critical Care Medicine; PCP Internal Medicine
DX: I82.432 Acute embolism and thrombosis of left popliteal vein (principal); R60.0 Localized edema; Z79.01 Long term (current) use of anticoagulants
CPT/HCPCS: 99281

== ENCOUNTER → 2023-05-06 13:44 | Outpatient (CLI) | payer MEDICARE, BC, SELFPAY ==
[2020-12-31 06:42] VITALS: BMI 30.1
--- NOTE | 2023-05-06 13:48 | DI.ECHO.S_ITS ---
[facility]---------+ [facility] +---------+ : : [address] : : : : [id number] : : : : Phone: [phone]+ Echocardiogram Report + + :Name: NAHID TURNER Study Date: 05/06/2023 Height: 62 in : :[facility] ReadingLocation: Weight: 168 lb : : Gender: Female BSA: 1.8 m2 : :: 1945 Age: 78 yrs BP: 101/61 mmHg: :Reason For Study: DYSPNEA : :Ordering Physician: OLIVE : :SUZY Performed By: Jeannie Hinds : :Referring: SUZY SCHAEFER : + + Interpretation Summary The left ventricle is normal in size. The ejection fraction is estimated to be 65-70%. This is unchanged compared to the previous study. Diastolic parameters suggest a pseudonormalization pattern, consistent with probable elevated filling pressures. The right ventricle is normal in size and function. There is mild to moderate mitral regurgitation. Compared to the prior echo study, there has been no change in the severity of mitral regurgitation. There is mild tricuspid regurgitation. Compared to the prior echo exam, there has been no change in TR severity. Pulmonary artery pressures cannot be estimated because of the lack of a measurable TR jet velocity. The IVC is of normal diameter and collapses greater than 50% with a sniff. This suggests a low right atrial pressure of 3 mm Hg. Procedure: A two-dimensional transthoracic echocardiogram with color flow and Doppler was performed. The study quality was technically adequate. The patient had an echocardiogram, but there is no comparison study available. The patient was in sinus rhythm with heart rates between 61-73 bpm during the exam. Left Ventricle: The left ventricle is normal in size. Proximal septal thickening is noted. There is no echo evidence for significant left ventricular outflow tract obstruction. There is no thrombus. The ejection fraction is estimated to be 65-70%. This is unchanged compared to the previous study. There are no focal wall motion abnormalities. Diastolic parameters suggest a pseudonormalization pattern, consistent with probable elevated filling pressures. Right Ventricle: The right ventricle is normal in size and function. Atria: The left atrium is mildly dilated. There has been no significant change since the previous study. Right atrial size is normal. There is no Doppler evidence for an interatrial shunt. Mitral Valve: There is mild mitral annular calcification. The mitral valve leaflets are mildly calcified. There is mild to moderate mitral regurgitation. Compared to the prior echo study, there has been no change in the severity of mitral regurgitation. Aortic Valve: The aortic valve is trileaflet. The aortic valve opens well. There is no aortic valve stenosis. No aortic regurgitation is present. Tricuspid Valve: The tricuspid valve is normal in structure and function. There is mild tricuspid regurgitation. Pulmonary artery pressures cannot be estimated because of the lack of a measurable TR jet velocity. Compared to the prior echo exam, there has been no change in TR severity. Pulmonic Valve: The pulmonic valve leaflets are thin and pliable; valve motion is normal. There is no pulmonic valvular regurgitation. Great Vessels: The aortic root is normal size. The dimensions of the ascending aorta are normal. The IVC is of normal diameter and collapses greater than 50% with a sniff. This suggests a low right atrial pressure of 3 mm Hg. Pericardium/ Pleura There is no pericardial effusion. There is an anterior echo-free space consistent with a fat pad. There is no pleural effusion. MMode/2D Measurements & Calculations LVIDd: 4.0 cm LVOT diam: 2.0 cm LVIDs: 2.4 cm Ao root diam: 2.8 cm FS: 39.4 % asc Aorta Diam: 2.7 cm EPSS: 0.33 cm Ao Arch Diam (Prox Trans): 2.6 cm IVSd: 0.94 cm LVPWd: 0.96 cm LV jauregui. diameter/BSA (cm/m^2): 2.3 LV sys. diameter/BSA (cm/m^2): 1.4 LA A2 area: 19.9 cm2 RA long axis: 4.1 cm LA A4 area: 19.7 cm2 RA area: 14.7 cm2 LA length (vol): 5.5 cm RA vol: 44.6 ml LA vol: 60.1 ml RA : 25.1 ml/m2 LA vol index: 33.8 ml/m2 IVC diam: 1.2 cm RVD1 (basal): 3.3 cm RVD2 (mid): 3.1 cm TAPSE: 2.2 cm Doppler Measurements & Calculations Ao V2 max: 182.6 cm/sec LVOT Max Gio: 138.9 cm/sec Ao V2 mean: 133.1 cm/sec LV V1 max P.7 mmHg Ao max P.3 mmHg LV V1 VTI: 33.0 cm Ao mean P.7 mmHg DANTE(I,D): 2.6 cm2 Ao V2 VTI: 40.5 cm DANTE(V,D): 2.5 cm2 sev ratio: 0.81 DANTE indexed to BSA (cm^2/m^2): 1.5 MV E max gio: 114.3 cm/sec PA V2 max: 89.0 cm/sec MV A max gio: 87.5 cm/sec PA V2 mean: 67.7 cm/sec MV E/A: 1.3 PA mean P.9 mmHg Med Peak E' Gio: 5.3 cm/sec PA pr(Accel): 15.6 mmHg E/E' med: 21.5 Lat Peak E' Gio: 7.9 cm/sec E/E' lat: 14.4 E/e' average: 18.0 MV dec time: 0.28 sec MVA(VTI): 2.8 cm2 MV V2 mean: 76.3 cm/sec SV(LVOT): 106.7 ml MV mean P.7 mmHg MV V2 VTI: 37.7 cm Reading Physician:09:49 AM
== END ==
PROVIDERS: PCP Family Medicine; Referring Provider Internal Medicine; Visit Provider Internal Medicine
DX: I08.1 Rheumatic disorders of both mitral and tricuspid valves (principal); R06.00 Dyspnea, unspecified
CPT/HCPCS: 93306

== ENCOUNTER → 2023-06-06 11:56 | Outpatient (CLI) | payer MEDICARE, BC, SELFPAY ==
[2020-12-31 06:42] VITALS: BMI 30.1
[2023-06-06 14:16] LABS: TSH w/ Reflex to FT4 2.96 uIU/mL (0.47-4.68)
[2023-06-08 01:04] LABS: x Labcorp Estim. Avg Glu (eAG) 143 mg/dL (.); x Labcorp Hemoglobin A1c 6.6 % (4.8-5.6)
== END ==
PROVIDERS: PCP Family Medicine; Referring Provider Family Medicine; Visit Provider Family Medicine
DX: E03.9 Hypothyroidism, unspecified; E11.9 Type 2 diabetes mellitus without complications
CPT/HCPCS: 36415; 83036; 84443

== ENCOUNTER → 2023-11-06 12:04 | Outpatient (CLI) | payer MEDICARE, BC, SELFPAY ==
[2020-12-31 06:42] VITALS: BMI 30.1
[2023-11-06 13:05] LABS: Add Manual Diff / Slide Review NO; Basophils Absolute Auto 100 /uL (0-100); Basophils Percent Auto 0.6 % (0-2); Eosinophils Absolute Auto 200 /uL (0-450); Eosinophils Percent Auto 1.6 % (2-4); Hematocrit 41.1 % (36-46); Lymphocytes Absolute Auto 1400 /uL (1100-4500); Lymphocytes Percent Auto 13.2 % (25-40); Mean Corpuscular HGB Conc 33.9 % (30-36); Mean Corpuscular Hemoglobin 30.3 PG (26-34); Mean Corpuscular Volume 89.4 fL (80-100); Monocytes Absolute Auto 500 /uL (0-900); Monocytes Percent Auto 4.7 % (3-14); Neutrophils Absolute Auto 8600 /uL (1500-7000); Neutrophils Percent Auto 79.9 % (50-75); Platelet Count 294 X10^3/uL (150-400); Red Cell Distribution Width 13.3 % (11.6-14.8); White Blood Cell Count 10.7 X10^3/uL (4.5-11.0)
[2023-11-06 13:13] LABS: Hemoglobin A1C% w Est Avg Glu 6.6 % (4.0-6.0)
[2023-11-06 13:24] LABS: Alanine Aminotransferase 51 IU/L (<35); Albumin 4.1 g/dL (3.5-5.0); Albumin Globulin Ratio 1.4 (1.0-2.8); Alkaline Phosphatase 75 U/L (38-126); Aspartate Aminotransferase 30 IU/L (14-36); BUN Creatinine Ratio 22.5 (6-22); Bilirubin Total 0.5 mg/dL (0.2-1.3); Blood Urea Nitrogen 16 mg/dL (7-17); Carbon Dioxide 29 mmol/L (22-32); Chloride 101 mmol/L (98-107); Estimated Glomerular Filt Rate > 60 mL/min (>60); Globulin 2.9 g/dL (1.7-4.1); Glucose 198 mg/dL (80-110); HEMOLYSIS < 15 (0-50); Potassium 3.6 mmol/L (3.4-5.1); Sodium 137 mmol/L (137-145)
[2023-11-09 17:43] LABS: Hep C Virus Ab w/Reflex Quant NEGATIVE s/c (NEGATIVE)
== END ==
LOC: LAB 12:06
PROVIDERS: PCP Family Medicine; Referring Provider Family Medicine; Visit Provider Family Medicine
DX: E11.9 Type 2 diabetes mellitus without complications (principal); G25.81 Restless legs syndrome; K52.9 Noninfective gastroenteritis and colitis, unspecified
CPT/HCPCS: 36415; 80053; 83036; 85025; 86803

== ENCOUNTER → 2023-11-30 14:07 | Outpatient (CLI) | payer MEDICARE, BC, SELFPAY ==
[2020-12-31 06:42] VITALS: BMI 30.1
[2023-12-01 12:48] LABS: Fecal Immunochemical Test Negative (Negative)
== END ==
PROVIDERS: PCP Family Medicine; Referring Provider Family Medicine; Visit Provider Family Medicine
DX: Z12.11 Encounter for screening for malignant neoplasm of colon (principal); R19.7 Diarrhea, unspecified
CPT/HCPCS: 82274

== ENCOUNTER → 2023-12-30 16:33 | Outpatient (CLI) | payer MEDICARE, BC, SELFPAY ==
[2020-12-31 06:42] VITALS: BMI 30.1
--- NOTE | 2023-12-30 16:35 | DI.RAD.S_ITS ---
PROCEDURE: XR ABDOMEN MIN 2V INDICATIONS: constipation TECHNIQUE: 2 views of the abdomen were acquired. COMPARISON: [facility], , XR ABDOMEN MIN 2V, 11/04/2021, 13:17. FINDINGS: Surgical changes and devices: Lower lumbar fusion hardware. Cholecystectomy clips. Bowel: No pneumoperitoneum. The bowel gas pattern is normal. Mild fecal load. Soft tissues: No masses; visualized solid organ contours appear normal in size. No suspicious abdominal calcifications. Bones: No suspicious bony abnormalities. IMPRESSION: Mild fecal load. Dictated by: Hank Clark M.D. on 12/30/2023 at 20:54 Approved by: Hank Clark M.D. on 12/30/2023 at 20:54
== END ==
LOC: RAD 16:34
PROVIDERS: PCP Family Medicine; Referring Provider Family Medicine; Visit Provider Family Medicine
DX: K59.00 Constipation, unspecified (principal); Z98.1 Arthrodesis status
CPT/HCPCS: 74019

== ENCOUNTER → 2024-06-08 17:15 | Outpatient (CLI) | payer MEDICARE, BC, SELFPAY ==
[2020-12-31 06:42] VITALS: BMI 30.1
[2024-06-08 18:17] LABS: BUN Creatinine Ratio 26.2 (6-22); Blood Urea Nitrogen 17 mg/dL (7-17); Calcium 9.2 mg/dL (8.4-10.2); Carbon Dioxide 27 mmol/L (22-32); Chloride 104 mmol/L (98-107); Estimated Glomerular Filt Rate > 60 mL/min (>60); Glucose 85 mg/dL (80-110); HEMOLYSIS < 15 (0-50); Potassium 4.2 mmol/L (3.4-5.1); Sodium 139 mmol/L (137-145)
== END ==
PROVIDERS: PCP Family Medicine; Referring Provider Family Medicine; Visit Provider Family Medicine
DX: E11.9 Type 2 diabetes mellitus without complications (principal)
CPT/HCPCS: 36415; 80048; 83036

== ENCOUNTER → 2024-12-09 09:34 | Outpatient (CLI) | payer MEDICARE, BC, SELFPAY ==
[2020-12-31 06:42] VITALS: BMI 30.1
--- NOTE | 2024-12-09 09:36 | DI.MG.S_ITS ---
BILATERAL DIGITAL SCREENING MAMMOGRAM 3D/2D WITH CAD: 12/09/2024 CLINICAL: Routine screening. Comparison is made to exams dated: 09/09/2023 mammogram, 07/02/2022 mammogram, and 03/22/2021 mammogram - outside facility. There are scattered areas of fibroglandular density (category b / 25%-50% glandular tissue). Current study was also evaluated with a Computer Aided Detection (CAD) system. There are benign calcifications in both breasts. No significant masses, calcifications, or other findings are seen in either breast. There has been no significant interval change. IMPRESSION: BENIGN There is no mammographic evidence of malignancy. A 1 year screening mammogram is recommended. Based on the Tyrer Cuzick model (a risk assessment model) the patient's lifetime risk is 0.8% and her 10 year risk is 0.0%. According to the ACR, ACS, and NCCN guidelines, an annual breast MRI exam along with mammogram is recommended if the patient's lifetime risk is 20% or greater. This exam was interpreted at Station ID: [id number]. NOTE: For mammograms, a report in lay terms will be sent to the patient. Approximately 15% of breast malignancies will not be visualized mammographically. In the management of a palpable breast mass, a negative mammogram must not discourage biopsy of a clinically suspicious lesion. Electronically Signed By: Ciro dill/jessica:12/10/2024 14:44:09 letter sent: Normal Exam ACR BI-RADS Category 2: Benign
== END ==
PROVIDERS: PCP Family Medicine; Referring Provider Family Medicine; Visit Provider Family Medicine
DX: Z12.31 Encounter for screening mammogram for malignant neoplasm of breast (principal)
CPT/HCPCS: 77063; 77067

== ENCOUNTER → 2025-02-14 14:37 | Outpatient (CLI) | payer MEDICARE, BC, SELFPAY ==
[2020-12-31 06:42] VITALS: BMI 30.1
[2025-02-14 16:10] LABS: Blood Urea Nitrogen 17 mg/dL (7-17); Carbon Dioxide 30 mmol/L (22-32); Chloride 101 mmol/L (98-107); Estimated Glomerular Filt Rate > 60 mL/min (>60); Glucose 96 mg/dL (70-99); HEMOLYSIS < 15 (0-50); Potassium 4.5 mmol/L (3.4-5.1); Sodium 138 mmol/L (137-145)
[2025-02-14 16:15] LABS: Hemoglobin A1C% w Est Avg Glu 5.8 % (4.0-6.0)
[2025-02-14 16:34] LABS: TSH w/ Reflex to FT4 0.88 uIU/mL (0.47-4.68)
== END ==
PROVIDERS: PCP Family Medicine; Referring Provider Family Medicine; Visit Provider Family Medicine
DX: E11.9 Type 2 diabetes mellitus without complications (principal); E03.9 Hypothyroidism, unspecified; K52.9 Noninfective gastroenteritis and colitis, unspecified
CPT/HCPCS: 36415; 80048; 83036; 84443

== ENCOUNTER → 2025-08-22 10:00 | Outpatient (CLI) | payer MEDICARE, MEDICAID, SELFPAY ==
[2020-12-31 06:42] VITALS: BMI 30.1
[2025-08-22 11:12] LABS: Hemoglobin A1C% w Est Avg Glu 6.2 % (4.0-6.0)
[2025-08-22 11:32] LABS: Alanine Aminotransferase 16 IU/L (<35); Albumin 4.2 g/dL (3.5-5.0); Albumin Globulin Ratio 1.5 (1.0-2.8); Alkaline Phosphatase 75 U/L (38-126); Blood Urea Nitrogen 16 mg/dL (7-17); Calcium 9.6 mg/dL (8.4-10.2); Carbon Dioxide 29 mmol/L (22-32); Chloride 101 mmol/L (98-107); Cholesterol 211 mg/dL (140-199); Estimated Glomerular Filt Rate > 60 mL/min (>60); Globulin 2.8 g/dL (1.7-4.1); Glucose 117 mg/dL (70-99); HDL Cholesterol 61 mg/dL (40-60); HEMOLYSIS < 15 (0-50); Potassium 4.1 mmol/L (3.4-5.1); Sodium 139 mmol/L (137-145); Total Protein 7.0 g/dL (6.3-8.2); Triglycerides 120 mg/dL (35-150)
== END ==
PROVIDERS: PCP Family Medicine; Referring Provider Family Medicine; Visit Provider Family Medicine
DX: E11.9 Type 2 diabetes mellitus without complications (principal); F32.89 Other specified depressive episodes; K52.9 Noninfective gastroenteritis and colitis, unspecified
CPT/HCPCS: 36415; 80053; 80061; 83036